=== PATIENT | male | born 1995 | race Caucasian/White ===

== ENCOUNTER 2016-10-30 22:10 | Observation (INO) | payer BC ==
[2016-10-30] MEDS ORDERED: IPRATROPIUM-ALBUTEROL 3 ML NEB INHALATION STA (22:46)
[2016-10-30] MEDS ORDERED: SODIUM CHLORIDE 0.9% 1,000 ML IV STA (22:46)
[2016-10-30] MEDS ORDERED: methylPREDNISolone SOD SUCCI 125 MG/2 ML VIAL IV STA (22:46)
[2016-10-30] MEDS ORDERED: MAGNESIUM SULFATE-D5W PMX 1 GM in DEXTROSE/WATER 1 100ML.BAG IVPB STA (22:46)
--- NOTE | 2016-10-30 22:51 | ED ---
SOB HPI - General Chief Complaint: Shortness of Breath Stated Complaint: SOB Time Seen by Provider: 10/30/16 22:30 Source: patient, RN notes reviewed Mode of arrival: ambulatory Limitations: no limitations - History of Present Illness Initial Comments: This is a 21-year-old male who is a smoker but he has no prior history of asthma or any other medical problems who states he had a cough for about a week or longer he states he was diagnosed with pneumonia about 3 weeks ago and diagnosed with a recurrence yesterday. He was started on medication but he seems worse she's has an shortness of breath chest pain with deep breathing sweats this can exertion cough which is dry at this time. He's been using an inhaler that he was given and does not help. He does admit to smoking so he had one cigarette today. No other complaints at this time MD Complaint: shortness of breath, cough, chest pain - Related Data Home Medications Medication Instructions Recorded Confirmed Levofloxacin [Levaquin] 500 mg PO DAILY 10/30/16 10/30/16 Promethazine 6.25MG/5Ml [Phenergan 5 ml PO Q4H PRN 10/30/16 10/30/16 Syrup] lamoTRIgine [LaMICtal] 200 mg PO DAILY 10/30/16 10/30/16 predniSONE 20 mg PO TID 10/30/16 10/30/16 Allergies Allergy/AdvReac Type Severity Reaction Status Date / Time No Known Allergies Allergy Verified 10/30/16 22:34 Review of Systems ROS Statement: Those systems with pertinent positive or pertinent negative responses have been documented in the HPI. ROS Other: All systems not noted in ROS Statement are negative. Past Medical History Additional Past Medical History / Comment(s): pneumonia History of Any Multi-Drug Resistant Organisms: None Reported Past Surgical History: Adenoidectomy, Appendectomy, Ear Surgery, Tonsillectomy Additional Past Surgical History / Comment(s): uvula removed, septoplasty, Past Psychological History: Bipolar Smoking Status: Current every day smoker Past Alcohol Use History: None Reported Past Drug Use History: None Reported General Exam - General Exam Comments Initial Comments: This is a well-developed well-nourished awake alert oriented 3 male Limitations: no limitations General appearance: alert, anxious, in distress Head exam: Present: atraumatic, normocephalic, normal inspection Eye exam: Present: normal appearance, PERRL, EOMI. Absent: scleral icterus, conjunctival injection, periorbital swelling ENT exam: Present: normal exam, mucous membranes moist Neck exam: Present: normal inspection. Absent: tenderness, meningismus, lymphadenopathy Respiratory exam: Absent: respiratory distress, wheezes, rales, rhonchi, stridor Cardiovascular Exam: Present: normal rhythm, normal heart sounds. Absent: systolic murmur, diastolic murmur, rubs, gallop, clicks GI/Abdominal exam: Present: soft, normal bowel sounds. Absent: distended, tenderness, guarding, rebound, rigid Extremities exam: Present: normal inspection, full ROM, normal capillary refill. Absent: tenderness, pedal edema, joint swelling, calf tenderness Back exam: Present: normal inspection Neurological exam: Present: alert, oriented X3, CN II-XII intact Psychiatric exam: Present: normal affect, normal mood Skin exam: Present: warm, dry, intact, normal color. Absent: rash Course Vital Signs 10/30/16 10/30/16 10/30/16 22:12 23:01 23:10 Temperature 99.5 F Pulse Rate 106 H 104 H 104 H Respiratory 22 Rate Blood Pressure 145/91 O2 Sat by Pulse 98 Oximetry - Reevaluation(s) Reevaluation #1: 10/30/16 22:54 I did discuss the smoking issues with the patient including the need for stopping. We did discuss risks. The conversation lasted 3.1 minutes. Reevaluation #2: 10/31/16 01:27 It was unlikely much improvement in his aeration. Medical Decision Making - Medical Decision Making Patient will be admitted for inpatient treatment and fell outpatient therapy - Lab Data Result diagrams: 10/30/16 23:00 10/30/16 23:00 Lab Results 10/30/16 10/30/16 10/30/16 Range/Units 23:00 23:00 23:00 WBC 12.5 H (3.8-10.6) k/uL RBC 5.35 (4.30-5.90) m/uL Hgb 15.0 (13.0-17.5) gm/dL Hct 45.8 (39.0-53.0) % MCV 85.7 (80.0-100.0) fL MCH 27.9 (25.0-35.0) pg MCHC 32.6 (31.0-37.0) g/dL RDW 13.7 (11.5-15.5) % Plt Count 207 (150-450) k/uL Neutrophils % 73 % Lymphocytes % 20 % Monocytes % 5 % Eosinophils % 1 % Basophils % 0 % Neutrophils # 9.1 H (1.3-7.7) k/uL Lymphocytes # 2.5 (1.0-4.8) k/uL Monocytes # 0.6 (0-1.0) k/uL Eosinophils # 0.1 (0-0.7) k/uL Basophils # 0.0 (0-0.2) k/uL PT (9.0-12.0) sec INR (<1.1) APTT (22.0-30.0) sec D-Dimer (<0.60) mg/L FEU Sodium 139 (137-145) mmol/L Potassium 4.0 (3.5-5.1) mmol/L Chloride 106 (98-107) mmol/L Carbon Dioxide 23 (22-30) mmol/L Anion Gap 10 mmol/L BUN 16 (9-20) mg/dL Creatinine 0.80 (0.66-1.25) mg/dL Est GFR (MDRD) Af Amer >60 (>60 ml/min/1.73 sqM) Est GFR (MDRD) Non-Af >60 (>60 ml/min/1.73 sqM) Glucose 106 H (74-99) mg/dL Calcium 9.7 (8.4-10.2) mg/dL Magnesium 1.9 (1.6-2.3) mg/dL Total Bilirubin 0.3 (0.2-1.3) mg/dL AST 76 H (17-59) U/L ALT 76 H (21-72) U/L Alkaline Phosphatase 70 (38-126) U/L Total Creatine Kinase 1540 H (55-170) U/L CK-MB (CK-2) 8.8 H* (0.0-2.4) ng/mL CK-MB (CK-2) Rel Index 0.6 Troponin I <0.012 (0.000-0.034) ng/mL NT-Pro-B Natriuret Pep pg/mL Total Protein 7.2 (6.3-8.2) g/dL Albumin 4.5 (3.5-5.0) g/dL Influenza Type A RNA (Not Detectd) Influenza Type B (PCR) (Not Detectd) 10/30/16 10/30/16 10/30/16 Range/Units 23:00 23:00 23:17 WBC (3.8-10.6) k/uL RBC (4.30-5.90) m/uL Hgb (13.0-17.5) gm/dL Hct (39.0-53.0) % MCV (80.0-100.0) fL MCH (25.0-35.0) pg MCHC (31.0-37.0) g/dL RDW (11.5-15.5) % Plt Count (150-450) k/uL Neutrophils % % Lymphocytes % % Monocytes % % Eosinophils % % Basophils % % Neutrophils # (1.3-7.7) k/uL Lymphocytes # (1.0-4.8) k/uL Monocytes # (0-1.0) k/uL Eosinophils # (0-0.7) k/uL Basophils # (0-0.2) k/uL PT 10.4 (9.0-12.0) sec INR 1.0 (<1.1) APTT 22.1 (22.0-30.0) sec D-Dimer <0.17 (<0.60) mg/L FEU Sodium (137-145) mmol/L Potassium (3.5-5.1) mmol/L Chloride (98-107) mmol/L Carbon Dioxide (22-30) mmol/L Anion Gap mmol/L BUN (9-20) mg/dL Creatinine (0.66-1.25) mg/dL Est GFR (MDRD) Af Amer (>60 ml/min/1.73 sqM) Est GFR (MDRD) Non-Af (>60 ml/min/1.73 sqM) Glucose (74-99) mg/dL Calcium (8.4-10.2) mg/dL Magnesium (1.6-2.3) mg/dL Total Bilirubin (0.2-1.3) mg/dL AST (17-59) U/L ALT (21-72) U/L Alkaline Phosphatase (38-126) U/L Total Creatine Kinase (55-170) U/L CK-MB (CK-2) (0.0-2.4) ng/mL CK-MB (CK-2) Rel Index Troponin I (0.000-0.034) ng/mL NT-Pro-B Natriuret Pep 26 pg/mL Total Protein (6.3-8.2) g/dL Albumin (3.5-5.0) g/dL Influenza Type A RNA Not Detected (Not Detectd) Influenza Type B (PCR) Not Detected (Not Detectd) - EKG Data -: EKG Interpreted by Ar EKG shows normal: sinus rhythm, axis, intervals, QRS complexes, ST-T waves (EKG done on the patient shows a normal sinus rhythm of 96 AK interval 128 QRS duration 84 daily since QTC of 358/[address]-T wave changes.) Rate: normal - Radiology Data Radiology results: report reviewed (X-rays are negative for acute findings.), image reviewed Critical Care Time Critical Care Time: Yes Critical Care Time: 31 minutes which included the initial presentation with history physical lab and x-rays reevaluation the patient response to therapy and several occasions discussion with patient regarding the findings discussed with the admitting service initial orders and documentation of the above. Disposition Clinical Impression: Asthmatic bronchitis, Failure of outpatient treatment, Febrile illness, acute, Bronchospasm Disposition: ADMITTED IP TO THIS HOSP Condition: Stable
[2016-10-30 23:08] LABS: Basophils % (A) 0 %; CH 28.2; CHCM 33.1; Eosinophils # (A) 0.1 k/uL (0-0.7); Eosinophils % (A) 1 %; HCT 45.8 % (39.0-53.0); HDW 2.63; Luc # (Auto) 0.18; Luc % (Auto) 1; Lymphocytes # (A) 2.5 k/uL (1.0-4.8); Lymphocytes % (A) 20 %; MCH 27.9 pg (25.0-35.0); MCHC 32.6 g/dL (31.0-37.0); MCV 85.7 fL (80.0-100.0); Mean Platelet Volume 6.9; Monocytes # (A) 0.6 k/uL (0-1.0); Monocytes % (A) 5 %; Neutrophils # (A) 9.1 k/uL (1.3-7.7); Neutrophils % (A) 73 %; RBC 5.35 m/uL (4.30-5.90); RDW 13.7 % (11.5-15.5); WBC 12.5 k/uL (3.8-10.6); WBC (Perox) 12.33
[2016-10-30 23:16] LABS: ALT 76 U/L (21-72); AST 76 U/L (17-59); Alkaline Phosphatase 70 U/L (38-126); Anion Gap 10 mmol/L; Blood Urea Nitrogen 16 mg/dL (9-20); Calcium 9.7 mg/dL (8.4-10.2); Carbon Dioxide 23 mmol/L (22-30); Chloride 106 mmol/L (98-107); Glucose 106 mg/dL (74-99); Magnesium 1.9 mg/dL (1.6-2.3); Non-African American GFR(MDRD) >60 (>60 ml/min/1.73 sqM); Sodium 139 mmol/L (137-145); Total Bilirubin 0.3 mg/dL (0.2-1.3); Total Protein 7.2 g/dL (6.3-8.2)
[2016-10-30 23:26] LABS: Creatine Kinase 1540 U/L (55-170)
[2016-10-30 23:34] LABS: Partial Thromboplastin Time 22.1 sec (22.0-30.0); Prothrombin Time 10.4 sec (9.0-12.0)
[2016-10-30 23:39] LABS: Troponin I <0.012 ng/mL (0.000-0.034)
[2016-10-30 23:44] LABS: Creatine Kinase MB 8.8 ng/mL (0.0-2.4)
--- NOTE | 2016-10-31 00:27 | XR ---
EXAM: XR Chest, 2 Views. CLINICAL HISTORY: Reason: difficulty breathing TECHNIQUE: Frontal and lateral views of the chest. COMPARISON: None FINDINGS: Lungs: Unremarkable. No consolidation. Pleural space: No pleural effusion. No pneumothorax. Heart: Unremarkable. No cardiomegaly. Mediastinum: Unremarkable. Bones/joints: Unremarkable. IMPRESSION: No acute cardiopulmonary disease.
[2016-10-31] MEDS ORDERED: NICOTINE 21MG/24HR PATCH TRANSDERM STA (01:32)
[2016-10-31] MEDS: IPRATROPIUM-ALBUTEROL 3 ML NEB INHALATION SCH ×3 (04:27→12:46)
[2016-10-31] MEDS: SODIUM CHLORIDE 0.9% 1,000 ML IV SCH ×2 (05:07→11:58)
[2016-10-31] MEDS: methylPREDNISolone SOD SUCCI 125 MG/2 ML VIAL IV SCH ×2 (06:38→12:03)
[2016-10-31 07:29] VITALS: BP 146/74; RESP 22; TEMP 96.8
[2016-10-31 08:04] VITALS: PULSE 104
[2016-10-31] MEDS ORDERED: LEVOFLOXACIN 500 MG TAB PO SCH (09:00)
[2016-10-31] MEDS ORDERED: NICOTINE 21MG/24HR PATCH TRANSDERM SCH (09:15)
[2016-10-31] MEDS ORDERED: guaiFENesin-DM 100-10MG/5ML 10 ML CUP PO PRN (09:19)
[2016-10-31 10:34] LABS: Hemoglobin A1C 5.4 % (4.2-6.1)
[2016-10-31] MEDS ORDERED: PNEUMOCOCCAL VACC-PNEUMOVAX 23 25 MCG/0.5 ML VIAL IM ONE (11:57)
[2016-10-31] MEDS ORDERED: INFLUENZA VACCINE (3YR+) 60 MCG/0.5 ML SYRINGE IM ONE (11:57)
[2016-10-31] MEDS ORDERED: INSULIN LISPRO (humaLOG) 300 UNIT/3 ML VIAL SQ SCH (12:30)
--- NOTE | 2016-10-31 14:31 | HP ---
DATE OF ADMISSION: HISTORY AND PHYSICAL AND DISCHARGE SUMMARY This 21-year-old pleasant gentleman came in with complaints of asthma, chest pressure-like sensation, unable to breathe. When I evaluated the patient, patient has pretty good air entry into bilateral lung verdugo. No wheezing was appreciated. Patient was complaining of cough with whitish sputum production and patient was diagnosed with pneumonia in the past and patient was also told he has pneumonia. Patient was started on antibiotics and was admitted here along with systemic steroids. When I evaluated the patient, the patient is clinically doing well. Will get rid of his oxygen, make him walk around. I do not believe patient has any infectious bronchitis. Patient does have asthmatic bronchitis and cough secondary to that. Chest x-ray did not show any pneumonic process. Patient will be given weaning dose of prednisone, Dulera. Patient does have albuterol at home. Patient does have gastroesophageal reflux symptoms at home because of which I will send him home on ranitidine as well for his acid reflux. The patient does smoke though. Counseling regarding smoking cessation was provided and that will precipitate his asthma. Patient does not have any PCP here. We will set up an appointment with Dr. Grimaldo and Dr. Rosas's group for pulmonary. REVIEW OF SYSTEMS: CONSTITUTIONAL: No fever, no malaise, no fatigue. HEENT: No recent visual problems or hearing problems. Denied any sore throat. CARDIOVASCULAR: No chest pain, orthopnea, PND, no palpitations, no syncope. PULMONARY: As described in HPI. GASTROINTESTINAL: No diarrhea, no nausea, no vomiting, no abdominal pain. Normoactive bowel sounds. NEUROLOGICAL: No headaches, no weakness, no numbness. HEMATOLOGICAL: Denies any bleeding or petechiae. GENITOURINARY: Denies any burning micturition, frequency, or urgency. MUSCULOSKELETAL/RHEUMATOLOGICAL: Denies any joint pain, swelling, or any muscle pain. ENDOCRINE: Denies any polyuria or polydipsia. The rest of the 14 point review of systems is negative. Home medications included: 1. Levofloxacin. 2. Promethazine. 3. Lamotrigine. 4. Prednisone. Past, social and family history is significant for smoking and psychiatric issues in family. PHYSICAL EXAMINATION: Temperature 96.8, pulse of 76 now it is showing as104, but on examination patient does not appear to have 104 heart rate, respiratory rate of 18, blood pressure is 146/74, saturating at 99% on 2 L of oxygen by nasal cannula. GENERAL: The patient is alert and oriented x3, not in any acute distress. Well developed, well nourished. HEENT: Pupils are round and equally reacting to light. EOMI. No scleral icterus. No conjunctival pallor. Normocephalic, atraumatic. No pharyngeal erythema. No thyromegaly. CARDIOVASCULAR: S1 and S2 present. No murmurs, rubs, or gallops. PULMONARY: Chest is clear to auscultation, no wheezing or crackles. ABDOMEN: Soft, nontender, nondistended, normoactive bowel sounds. No palpable organomegaly. MUSCULOSKELETAL: No joint swelling or deformity. EXTREMITIES: No cyanosis, clubbing, or pedal edema. NEUROLOGICAL: Gross neurological examination did not reveal any focal deficits. SKIN: No rashes. LABORATORY DATA: CBC, BMP are abnormal for elevated WBC count of 12,500 secondary to systemic steroids. Chest x-ray did not show any pneumonic process. ASSESSMENT AND PLAN: 1. Acute asthma exacerbation ( ) status asthmaticus. Patient appears to have moderate persistent asthma. Patient does not have any seasonal allergies. He says he had exercise induced asthma as a kid. Further evaluation can be done as an outpatient. Patient will be discharged on weaning dose of steroids. I do not believe patient will need any antibiotics and patient will be given prescription for Dulera and albuterol. The patient does have albuterol at home. 2. Gastroesophageal reflux disease. 3. Bipolar disorder. 4. Nicotine abuse. Counseling was provided. For bipolar disorder, patient can continue Lamictal. Patient will follow with Dr. Quique Grimaldo on 04 of November at 2 p.m.; Dr. Mary Abreu on 07 of November at 10 a.m. Activity as tolerated. Regular diet. Nicotine cessation counseling was provided. CHELSEA
== END 2016-10-31 13:12 | disposition home or self-care (01) ==
LOC: EC 22:10 → 4MS4W 10-31 01:29
PROVIDERS: ADMIT Internal Medicine; ATTEND Internal Medicine
DX: J45.42 Moderate persistent asthma with status asthmaticus (principal); K21.9 Gastro-esophageal reflux disease without esophagitis; F31.9 Bipolar disorder, unspecified; Z79.899 Other long term (current) drug therapy; Z79.52 Long term (current) use of systemic steroids; F17.200 Nicotine dependence, unspecified, uncomplicated; J18.9 Pneumonia, unspecified organism; Z23 Encounter for immunization
CPT/HCPCS: 99291 ×2; 96365 ×2; 96375 ×2; 96366 ×2; 36415; 94640 ×3; 94760; 93005; 85379; 83880; 80053; 83036; 82550; 82553; 83735; 84484; 85025; 85610; 85730; 87502; 71020; 90732; 90686; G0378; G0008; G0009; S4990; J2930 ×2; J3475; 96376

== ENCOUNTER → 2016-11-11 | Outpatient (CLI) | payer BC ==
--- NOTE | 2016-11-11 16:22 | XR ---
Bilateral shoulders HISTORY: Pain 3 views of both shoulders are submitted on a total of 6 images Bone mineralization, joint spaces and alignment are maintained with the exception of slight superior displacement of the distal clavicle on the left in relation to the acromion. Lung apices are normal. There is a slight thoracic spinal curvature IMPRESSION: Findings suggest acromioclavicular separation on the left. No fracture. Additional findin gs above.
== END ==
LOC: RADXRMAIN 14:30
PROVIDERS: ATTEND Family Medicine
DX: M25.519 Pain in unspecified shoulder (principal)

== ENCOUNTER 2016-12-24 08:25 | Day surgery (SDC) | payer BC ==
[2016-12-22 13:55] VITALS: BMI 32.5
[~2016-12-24 08:25] MED LIST: DEXAMETHASONE SOD PHOSPHATE 10 MG/ML 1 ML VIAL IV ONE; DEXAMETHASONE SOD PHOSPHATE 4 MG/ML 1 ML VIAL IV ONE; FAMOTIDINE 20 MG/2 ML VIAL IV ONE; HYDROmorphone 1 MG/ML 1 ML SYRINGE IVP PRN; LACTATED RINGERS 1,000 ML IV SCH; MIDAZOLAM 2 MG/2 ML VIAL IV PRN; ONDANSETRON 4 MG/2 ML VIAL IVP ONE; SCOPOLAMINE 1.5MG/72HR PATCH TRANSDERM ONE; ceFAZolin 1,000 MG in DEXTROSE/WATER 1 50ML.BAG IV ONE
[2016-12-24] MEDS: OXYMETAZOLINE 0.05% NASL SPRAY 15 ML NASAL ONE ×5 (09:10→09:44)
[2016-12-24] MEDS ORDERED: LIDOCAINE 1% 20 ML VIAL (10MG/ML) FOR IV START INTRADERMA ONE (09:22)
[2016-12-24] MEDS ORDERED: SUCCINYLCHOLINE CHLORIDE 100 MG/5 ML SYR IV ONE (09:52)
[2016-12-24] MEDS ORDERED: MIDAZOLAM 2 MG/2 ML VIAL ONE (09:52)
[2016-12-24] MEDS ORDERED: KETOROLAC 30 MG/ML 1 ML VIAL ONE (09:52)
[2016-12-24] MEDS ORDERED: fentaNYL (PF) 50 MCG/ML 2 ML AMP ONE (09:52)
[2016-12-24] MEDS ORDERED: PROPOFOL 10 MG/ML 20 ML VIAL IV ONE (09:52)
[2016-12-24] MEDS ORDERED: LIDOCAINE 1% INJ 10MG/ML (20 ML MDV) ONE (09:52)
[2016-12-24] MEDS ORDERED: HYDROmorphone (PF) 1 MG/ML ONE (09:52)
[2016-12-24] MEDS ORDERED: DEXAMETHASONE SOD PHOS (MDV) 100 MG/10 ML VIAL ONE (09:52)
[2016-12-24] MEDS ORDERED: LIDOCAINE 1%-EPI 1:100,000 20 ML VIAL SUBMUCOSAL ONE ×2 (10:08)
[2016-12-24] MEDS ORDERED: BACITRACIN 500 UNIT/GM OINT 28.4 GM TUBE TOPICAL ONE (10:08)
--- NOTE | 2016-12-24 10:30 | P.OP ---
Date of Procedure: 12/24/16 Preoperative Diagnosis: Deviated nasal septum Inferior turbinate hypertrophy Postoperative Diagnosis: Same Procedure(s) Performed: Septoplasty Outfracture and submucous resection of the inferior turbinates Anesthesia: CIERAA Surgeon: Frank Elaine Estimated Blood Loss (ml): 5 Pathology: other (Nasal septal bone and cartilage) Condition: stable Disposition: PACU Indications for Procedure: This is a 21-year-old white male with difficulties with chronic nasal airway obstruction. He does have a history of septoplasty tonsillectomy uvulopalatopharyngoplasty in 2013 for sleep apnea but has had increased difficulties with nasal airway obstruction over the last year. Operative Findings: Nasal septum deviated to the left, inferior turbinate hypertrophy Description of Procedure: Patient was brought in the operative suite and placed in a supine position. The patient underwent induction of general anesthesia with oral endotracheal intubation without difficulty. The patient was prepped and draped in usual aseptic fashion. 1% lidocaine with 1-100,000 epinephrine was infused submucosally both sides nasal septum. While this was taking vasoconstrictive effect the inferior turbinates were infractured with [place] elevator partial submucous resection inferior turbinates was performed with Coblation wand ablating a portion of the inferior turbinate soft tissue and then outfractured with the [place] elevator. A left hemitransfixion incision was made with the mucoperichondrial ostial flap on the left elevated. Bony cartilaginous junction was disarticulated and the mucoperiosteal flap on the right was elevated. Bony nasal septal deformities were removed although much of the bony nasal septum was all removed from previous septoplasty. An inferior cartilaginous strip was removed leaving a full 1.5 cm caudal strut. This may be most difference as far as correcting the septal deformity to the left. Once this was completed the hemitransfixion incision was closed running 4-0 chromic suture. Bilateral nasal septal splints were placed coated bacitracin ointment and sutured trans-septally with a 4-0 Vicryl suture. Patient was then suctioned in oral gastric fashion. Patient was allowed to emerge from general anesthesia having tolerated procedure well was excised in the operating suite and transferred to postop recovery area in satisfactory condition.
[2016-12-24 10:38] VITALS: TEMP 98
[2016-12-24 11:24] VITALS: RESP 18
[2016-12-24] MEDS ORDERED: LACTATED RINGERS 1,000 ML IV ONE (11:26)
[2016-12-24 12:38] VITALS: BP 132/70; PULSE 64
== END 2016-12-24 12:38 | disposition home or self-care (01) ==
LOC: OR 08:25
PROVIDERS: ATTEND Otolaryngology
DX: J34.2 Deviated nasal septum (principal); J34.3 Hypertrophy of nasal turbinates; Z72.0 Tobacco use; F14.21 Cocaine dependence, in remission
CPT/HCPCS: 30140; 30520; J2250; J1100 ×2; J2405; J2001; J3010; J1885; J1170; J0330; J2704; 88300

== ENCOUNTER 2016-12-31 22:10 | Emergency (ER) | payer BC, OTHER ==
[2016-12-31 22:30] VITALS: BP 130/66; PULSE 85; RESP 16; TEMP 99.3
== END 2017-01-01 00:05 | disposition home or self-care (01) ==
LOC: EC 22:10
DX: Z02.89 Encounter for other administrative examinations (principal)

== ENCOUNTER 2017-01-14 22:22 | Emergency (ER) | payer BC, OTHER ==
[2017-01-15] MEDS ORDERED: KETOROLAC 60 MG/2 ML VIAL IM STA (00:06)
--- NOTE | 2017-01-15 00:11 | ED ---
Back Pain HPI - General Chief Complaint: Back Pain/Injury Stated Complaint: [facility]. Back Injury Time Seen by Provider: 01/14/17 23:56 Source: patient, RN notes reviewed Limitations: no limitations - History of Present Illness Initial Comments: 21-year-old male presenting for back pain. Patient states he was lifting a heavy object at work about an hour ago when he felt a pop in his mid back. He states he has had persistent back pain since this time. He states he was unable to lift anything after this initial insult without significant worsening of pain. He denies any other injury. He denies any syncope or fall. He denies any significant medical history. He denies any other complaints at this time. - Related Data Home Medications Medication Instructions Recorded Confirmed lamoTRIgine [LaMICtal] 200 mg PO DAILY 10/30/16 12/31/16 Acetaminophen [Tylenol] 650 mg PO Q6HR PRN 12/31/16 12/31/16 HYDROcodone/APAP 5-325MG [[place] 1 tab PO TID PRN 12/31/16 12/31/16 5-325] Sodium Chloride [[place]] 2 spray EA NOSTRIL DAILY 12/31/16 12/31/16 Previous Rx's Medication Instructions Recorded Ibuprofen [Motrin] 800 mg PO Q8HR PRN #21 tab 01/15/17 Methocarbamol [Robaxin] 500 mg PO TID PRN #15 tab 01/15/17 Allergies Allergy/AdvReac Type Severity Reaction Status Date / Time No Known Allergies Allergy Verified 01/14/17 22:55 Review of Systems ROS Statement: Those systems with pertinent positive or pertinent negative responses have been documented in the HPI. ROS Other: All systems not noted in ROS Statement are negative. Past Medical History Past Medical History: Asthma, Pneumonia Additional Past Medical History / Comment(s): pneumonia History of Any Multi-Drug Resistant Organisms: None Reported Past Surgical History: Adenoidectomy, Appendectomy, Ear Surgery, Tonsillectomy Additional Past Surgical History / Comment(s): uvula removed, septoplasty Past Anesthesia/Blood Transfusion Reactions: No Reported Reaction Past Psychological History: Anxiety, Bipolar Smoking Status: Current every day smoker Past Alcohol Use History: None Reported Past Drug Use History: None Reported Additional Drug Use History / Comment(s): History of cocaine use - Past Family History Mother Family Medical History: Cancer, Hyperlipidemia, Hypertension Additional Family Medical History / Comment(s): Ovarian CA, non-Hodgkins lymp Father Family Medical History: Cancer Additional Family Medical History / Comment(s): Skin CA General Exam - General Exam Comments Initial Comments: General: Awake and Alert. No acute distress. Does not appear acutely ill. Eyes: CORBY. No scleral icterus. HENT: Atraumatic, normocephalic. Mucous membranes moist. Trachea midline. Neck: The neck is supple, there is no tenderness or JVD. Cardiovascular: Regular rate and rhythm. No murmur, rub, or gallop is appreciated. Respiratory: Lungs are clear to auscultation bilaterally. No wheezes, rales, rhonchi. No respiratory distress. Gastrointestinal: Non-distended. Musculoskeletal: Right paraspinal muscular tenderness from the mid thoracic to upper lumbar area. No posterior spinal tenderness. Normal ROM. No gross deformity. No strength deficits. Neurological: A&Ox3. CN II-XII grossly intact, There are no obvious motor or sensory deficits. Coordination appears grossly intact. Speech is normal. Normal gait. Skin: Skin is warm and dry and no rashes or lesions are noted. Psychiatric: Cooperative, appropriate mood & affect, normal judgment. Limitations: no limitations Course Vital Signs 01/14/17 22:46 Temperature 98.0 F Pulse Rate 86 Respiratory 20 Rate Blood Pressure 128/77 O2 Sat by Pulse 96 Oximetry Medical Decision Making - Medical Decision Making 21-year-old male presenting for acute back pain after lifting heavy object. Patient with right paraspinal muscular spasm and tenderness. No midline spinal tenderness. Back x-rays were ordered without evidence of acute fracture. Patient was given a dose of Toradol IM with improvement of his pain. Patient requesting no narcotic medications as he is currently in a three-quarter house. Updated on imaging. Discussed concerning signs symptoms for immediate return to the ED. Discussed close follow-up with primary doctor. Patient is agreeable with plan and discharge home. Disposition Clinical Impression: Back strain Disposition: HOME SELF-CARE Condition: Stable Instructions: Acute Low Back Pain (ED) Prescriptions: Ibuprofen [Motrin] 800 mg PO Q8HR PRN #21 tab PRN Reason: Pain Methocarbamol [Robaxin] 500 mg PO TID PRN #15 tab PRN Reason: back spasm Referrals: None,Stated [Primary Care Provider] - 1-2 days Time of Disposition: :25
--- NOTE | 2017-01-15 01:11 | XR ---
EXAM: XR L Spine CLINICAL HISTORY: Reason: Pain TECHNIQUE: X-ray l spine. COMPARISON: No relevant prior studies available. FINDINGS: Mild height loss in the region of the thoracolumbar junction felt to be normal variation. No acute fracture or subluxation. IMPRESSION: No acute fracture or subluxation.
--- NOTE | 2017-01-15 01:12 | XR ---
EXAM: XR T Spine CLINICAL HISTORY: Reason: Pain TECHNIQUE: AP lateral and swimmer's views COMPARISON: No relevant prior studies available. FINDINGS: Limited by summation. No acute fracture or subluxation is identified. IMPRESSION: No acute fractures identified.
[2017-01-15 01:30] VITALS: BP 122/68; PULSE 79; RESP 18; TEMP 97.2
== END 2017-01-15 01:29 | disposition home or self-care (01) ==
LOC: EC 22:22
DX: S39.012A Strain of muscle, fascia and tendon of lower back, initial encounter (principal); F31.9 Bipolar disorder, unspecified; F17.200 Nicotine dependence, unspecified, uncomplicated; Z79.899 Other long term (current) drug therapy; X50.0XXA Overexertion from strenuous movement or load, initial encounter; Y92.69 Other specified industrial and construction area as the place of occurrence of the external cause; Y99.0 Civilian activity done for income or pay
CPT/HCPCS: 72070; 72100; 99283; 96372; J1885

== ENCOUNTER → 2017-02-27 | Outpatient (CLI) | payer BC ==
[2017-02-27 14:13] LABS: Basophils # (A) 0.1 k/uL (0-0.2); Basophils % (A) 1 %; CH 27.9; CHCM 33.3; Eosinophils # (A) 0.1 k/uL (0-0.7); Eosinophils % (A) 2 %; HCT 46.8 % (39.0-53.0); HDW 2.63; HGB 16.3 gm/dL (13.0-17.5); Luc # (Auto) 0.15; Luc % (Auto) 2; Lymphocytes # (A) 2.3 k/uL (1.0-4.8); Lymphocytes % (A) 33 %; MCH 29.2 pg (25.0-35.0); MCHC 34.8 g/dL (31.0-37.0); MCV 83.9 fL (80.0-100.0); Mean Platelet Volume 7.7; Monocytes # (A) 0.5 k/uL (0-1.0); Monocytes % (A) 7 %; Neutrophils # (A) 3.9 k/uL (1.3-7.7); Neutrophils % (A) 55 %; RBC 5.57 m/uL (4.30-5.90); RDW 14.1 % (11.5-15.5); WBC (Perox) 7.01
[2017-02-27 14:37] LABS: % Iron Saturation 18.5 % (20-50)
[2017-02-27 19:56] LABS: Tis Transglutaminase IgG Unit 134.9 U/mL
== END | disposition home or self-care (01) ==
LOC: LABWHC1 13:27
PROVIDERS: ATTEND Student in an Organized Health Care Education/Training Program
DX: R10.13 Epigastric pain (principal); R63.4 Abnormal weight loss
CPT/HCPCS: 36415; 82728; 82784; 83516; 83540; 83550; 85025; 86255

== ENCOUNTER → 2017-05-20 | Outpatient (CLI) | payer OTHER ==
--- NOTE | 2017-05-20 18:03 | XR ---
PROCEDURE: XR wrist complete BILATERAL DATE AND TIME: 05/20/2017 5:40 PM REFERRING PHYSICIAN: Chaz Duff DO CLINICAL INDICATION: [facility], M25.531 M25.532 bilateral wrist pain TECHNIQUE: Department protocol. COMPARISON: None FINDINGS: Right wrist: AP and lateral and oblique views were obtained, in addition to a navicular view. The bon es and joints and soft tissues are negative. Left wrist: AP and lateral and oblique views were obtained, in addition to a ventricular view. The michael stepan and joints and soft tissues are negative. IMPRESSION: NO ACUTE PROCESS; NO INCIDENTAL FINDINGS.
== END | disposition home or self-care (01) ==
LOC: RADXRMAIN 17:26
PROVIDERS: ATTEND Emergency Medicine
DX: M25.531 Pain in right wrist (principal); M25.532 Pain in left wrist

== ENCOUNTER 2018-05-02 18:09 | Emergency (ER) | payer BC, OTHER ==
[2018-05-02 18:31] VITALS: BP 124/75; PULSE 89; RESP 20; TEMP 98.1
--- NOTE | 2018-05-02 18:49 | ED ---
Lower Extremity Injury HPI - General Chief Complaint: Extremity Injury, Lower Stated Complaint: Knee injury Time Seen by Provider: 05/02/18 18:22 Source: patient, RN notes reviewed Mode of arrival: wheelchair Limitations: no limitations - History of Present Illness Initial Comments: 23-year-old male presents emergency Department chief complaint right knee pain. 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 Patient states that his knee feels very and stable at this time and he has increased pain, swelling. Patient states he's never had any issues in the past with his knee. Denies any hip or ankle pain. - Related Data Home Medications Medication Instructions Recorded Confirmed Omeprazole 40 mg PO DAILY 05/02/18 05/02/18 Protandim 1 tab PO DAILY 05/02/18 05/02/18 Sofosbuvir/Velpatasvir [Epclusa 1 each PO DAILY 05/02/18 05/02/18 400 mg-100 mg Tablet] Allergies Allergy/AdvReac Type Severity Reaction Status Date / Time No Known Allergies Allergy Verified 05/02/18 18:16 Review of Systems ROS Statement: Those systems with pertinent positive or pertinent negative responses have been documented in the HPI. ROS Other: All systems not noted in ROS Statement are negative. Past Medical History Past Medical History: Asthma, Pneumonia Additional Past Medical History / Comment(s): hep c, previous drug user History of Any Multi-Drug Resistant Organisms: None Reported Past Surgical History: Adenoidectomy, Appendectomy, Ear Surgery, Tonsillectomy Additional Past Surgical History / Comment(s): uvula removed, septoplasty, right rotator cuff Past Anesthesia/Blood Transfusion Reactions: No Reported Reaction Past Psychological History: No Psychological Hx Reported Smoking Status: Current every day smoker Past Alcohol Use History: None Reported Past Drug Use History: None Reported - Past Family History Mother Family Medical History: Cancer, Hyperlipidemia, Hypertension Additional Family Medical History / Comment(s): Ovarian CA, non-Hodgkins lymp Father Family Medical History: Cancer Additional Family Medical History / Comment(s): Skin CA General Exam Limitations: no limitations General appearance: alert, in no apparent distress Head exam: Present: atraumatic, normocephalic, normal inspection Neck exam: Present: normal inspection, full ROM. Absent: tenderness, meningismus, lymphadenopathy Respiratory exam: Present: normal lung sounds bilaterally. Absent: respiratory distress, wheezes, rales, rhonchi, stridor Cardiovascular Exam: Present: regular rate, normal rhythm, normal heart sounds. Absent: systolic murmur, diastolic murmur, rubs, gallop, clicks Extremities exam: Present: other (Right knee there is mild swelling, no tenderness with palpation though he has pain with range of motion passive and active, no laxity noted but pain with valgus and varus.) Neurological exam: Present: reflexes normal. Absent: motor sensory deficit Skin exam: Present: warm, dry, intact, normal color. Absent: rash Course Vital Signs 05/02/18 18:17 Temperature 98.1 F Pulse Rate 89 Respiratory 20 Rate Blood Pressure 124/75 O2 Sat by Pulse 100 Oximetry Medical Decision Making - Medical Decision Making 23-year-old male presented emergency from for right knee injury. Patient had x- rays which showed no acute osseous abnormality. Patient does have noted swelling and pain with range of motion. Explain with these findings and concern for possible ligamentous injury including ACL, MCL or possible meniscus injury. Patient was placed in knee immobilizer he'll follow-up with orthopedics on-call Dr. Matias and return for any worsening symptoms. Disposition Clinical Impression: Right knee sprain Disposition: HOME SELF-CARE Condition: Stable Instructions: Knee Sprain (ED) Additional Instructions: Please return to the Emergency Department if symptoms worsen or any other concerns. Is patient prescribed a controlled substance at d/c from ED?: No Referrals: Chaz Lacy DO [Primary Care Provider] - 1-2 days Twan Matias MD [STAFF PHYSICIAN] - 1-2 days Time of Disposition: 18:59
--- NOTE | 2018-05-02 18:57 | XR ---
EXAMINATION TYPE: XR knee complete RT DATE OF EXAM: 05/02/2018 COMPARISON: NONE HISTORY: Knee pain TECHNIQUE: 3 views FINDINGS: I see no fracture nor dislocation. Joint spaces are normal. There is no sign of knee joint effusion. IMPRESSION: Negative right knee exam.
== END 2018-05-02 19:08 | disposition home or self-care (01) ==
LOC: EC 18:09
DX: S83.91XA Sprain of unspecified site of right knee, initial encounter (principal); F17.200 Nicotine dependence, unspecified, uncomplicated; Z79.899 Other long term (current) drug therapy; X50.9XXA Other and unspecified overexertion or strenuous movements or postures, initial encounter; Y93.01 Activity, walking, marching and hiking; Y92.511 Restaurant or cafe as the place of occurrence of the external cause
CPT/HCPCS: 73562; 99283; L1830

== ENCOUNTER 2018-06-20 21:26 | Emergency (ER) | payer BC, OTHER ==
[2018-06-20 21:47] VITALS: TEMP 98.4
--- NOTE | 2018-06-20 22:05 | ED ---
General Adult HPI - General Chief complaint: Head Injury Stated complaint: facial injury(Baseball) Source: patient Mode of arrival: ambulatory Limitations: no limitations - History of Present Illness Initial comments: Dictation was produced using [employer] dictation software. please excuse any grammatical, word or spelling errors. Chief Complaint: 23-year-old male presents with right maxillary pain. History of Present Illness: Patient was in a softball game. He states he was hit in the face by a line drive playing softball. He states that after the incident he began expressing severe pain. Patient denies loss of consciousness however didn't state that he was woozy. Patient states he has some visual changes. Denies any nose bleeding. Denies any malocclusion. He states he does have some tenderness to the left TMJ especially with opening and closing his mouth. He does report some double vision. Patient states that did have an approximately 3 PM The ROS documented in this emergency department record has been reviewed and confirmed by me. Those systems with pertinent positive or negative responses have been documented in the HPI. All other systems are other negative and/or noncontributory. - Related Data Home Medications Medication Instructions Recorded Confirmed Omeprazole 40 mg PO DAILY 05/02/18 05/02/18 Protandim 1 tab PO DAILY 05/02/18 05/02/18 Sofosbuvir/Velpatasvir [Epclusa 1 each PO DAILY 05/02/18 05/02/18 400 mg-100 mg Tablet] Previous Rx's Medication Instructions Recorded Ibuprofen [Motrin] 600 mg PO Q8HR PRN #30 tab 05/02/18 Erythromycin Ophth Oint [Romycin 1 applic RIGHT EYE QID #1 tube 06/20/18 Ophth Oint] Allergies Allergy/AdvReac Type Severity Reaction Status Date / Time No Known Allergies Allergy Verified 06/20/18 21:47 Review of Systems ROS Statement: Those systems with pertinent positive or pertinent negative responses have been documented in the HPI. ROS Other: All systems not noted in ROS Statement are negative. Past Medical History Past Medical History: Asthma, Pneumonia Additional Past Medical History / Comment(s): hep c, previous drug user History of Any Multi-Drug Resistant Organisms: None Reported Past Surgical History: Adenoidectomy, Appendectomy, Ear Surgery, Tonsillectomy Additional Past Surgical History / Comment(s): uvula removed, septoplasty, right rotator cuff Past Anesthesia/Blood Transfusion Reactions: No Reported Reaction Past Psychological History: No Psychological Hx Reported Smoking Status: Current every day smoker Past Alcohol Use History: None Reported Past Drug Use History: None Reported - Past Family History Mother Family Medical History: Cancer, Hyperlipidemia, Hypertension Additional Family Medical History / Comment(s): Ovarian CA, non-Hodgkins lymp Father Family Medical History: Cancer Additional Family Medical History / Comment(s): Skin CA General Exam - General Exam Comments Initial Comments: PHYSICAL EXAM: General Impression: Alert and oriented x3, not in acute distress HEENT: Right maxillary erythema and swelling, extra-ocular movements intact, pupils equal and reactive to light bilaterally, mucous membranes moist. Cardiovascular: Heart regular rate and rhythm, S1&S2 audible, no murmurs, rubs or gallops Chest: Lungs clear to auscultation bilaterally, no rhonchi, no wheeze, no rales Abdomen: Bowel sounds present, abdomen soft, non-tender, non-distended, no organomegaly Musculoskeletal: Pulses present and equal in all extremities, no peripheral edema Motor: Power 5/5 bilaterally, no focal deficits noted Neurological: CN II-XII grossly intact, no focal motor or sensory deficits noted Skin: Intact with no visualized rashes Psych: Normal affect and mood Limitations: no limitations Course Vital Signs 06/20/18 21:45 Temperature 98.4 F Pulse Rate 97 Respiratory 18 Rate Blood Pressure 129/80 O2 Sat by Pulse 98 Oximetry Medical Decision Making - Medical Decision Making ED course: 23-year-old male presents with facial pain after being hit in the face with softball. Vital signs upon arrival are within acceptable limits. Computed tomography scan of the face was obtained showing no facial fractures. Vision acuity was checked with 20/50 on the right and 20/20 on the left. Fluorescein testing showed a 1 x 1 mm abrasion to the nasal inferior conjunctiva. Patient given prescription for erythromycin ointment. He is given outpatient follow-up with ophthalmology. Patient is understandable and agreeable to plan. Disposition Clinical Impression: Corneal abrasion Disposition: HOME SELF-CARE Condition: Good Instructions: Corneal Abrasion (DC) Prescriptions: Erythromycin Ophth Oint [Romycin Ophth Oint] 1 applic RIGHT EYE QID #1 tube Is patient prescribed a controlled substance at d/c from ED?: No Referrals: Chaz Lacy DO [Primary Care Provider] - 1-2 days Earnest Lynn MD [STAFF PHYSICIAN] - 1-2 days Time of Disposition: 23:34
[2018-06-20] MEDS ORDERED: KETOROLAC 30 MG/ML 1 ML VIAL IM STA (22:15)
[2018-06-20] MEDS ORDERED: ACETAMINOPHEN TAB 500 MG TAB PO STA (22:19)
--- NOTE | 2018-06-20 23:10 | CT ---
EXAMINATION TYPE: CT facial bones wo con DATE OF EXAM: 06/20/2018 COMPARISON: None HISTORY: Right infraorbital pain after injury. CT DLP: 637.6 mGycm Automated exposure control for dose reduction was used. TECHNIQUE: CT scan of the sinuses is performed without contrast, axial images are obtained, coronal r eformatted images are also reviewed. FINDINGS: The orbital margins are intact. I see no evidence of blowout fracture. There is fairly norm al aeration of the paranasal sinuses. The maxilla appears intact. Nasal bone appears intact. Zygomati c arches appear normal. The mandibular ring appears intact. Temporomandibular joints appear normal. T here is no evidence of orbital mass. There is no retro-orbital mass. IMPRESSION: Negative CT scan of the facial bones.
[2018-06-20] MEDS ORDERED: PROPARACAINE 0.5% OPHTH DROPS 15 ML BTL RIGHT EYE STA (23:25)
[2018-06-20 23:33] VITALS: BP 119/67; PULSE 70; RESP 17
[2018-06-20] MEDS ORDERED: IBUPROFEN 600 MG TAB PO STA (23:36)
== END 2018-06-20 23:42 | disposition home or self-care (01) ==
LOC: EC 21:26
DX: S05.01XA Injury of conjunctiva and corneal abrasion without foreign body, right eye, initial encounter (principal); F17.200 Nicotine dependence, unspecified, uncomplicated; Z98.890 Other specified postprocedural states; Z79.899 Other long term (current) drug therapy; W21.07XA Struck by softball, initial encounter; Y93.64 Activity, baseball
CPT/HCPCS: 70486; 99284

== ENCOUNTER 2018-06-28 02:26 | Emergency (ER) | payer BC, OTHER ==
--- NOTE | 2018-06-28 02:46 | ED ---
Chest Pain HPI - General Chief Complaint: Chest Pain Stated Complaint: SOB, Palpitations Time Seen by Provider: 06/28/18 02:44 Source: patient Mode of arrival: ambulatory Limitations: no limitations - History of Present Illness Initial Comments: Urine is a 23-year-old male with a previous history of polysubstance abuse who presents the emergency department today for evaluation of chest pain. Patient reports he was in his usual state of health throughout the day today, he did work out somewhat. He reports that this evening he developed a stabbing left- sided chest pain. It is not associated with any palpitations, shortness of breath or diaphoresis. Patient is no cardiac history. He does report that he had grandparents with cardiac history but no one in the family with early cardiac disease or sudden cardiac . He has no history of tinnitus pneumothorax. He denies any recent chest wall trauma. - Related Data Home Medications Medication Instructions Recorded Confirmed Sofosbuvir/Velpatasvir [Epclusa 1 each PO DAILY 05/02/18 06/28/18 400 mg-100 mg Tablet] Allergies Allergy/AdvReac Type Severity Reaction Status Date / Time No Known Allergies Allergy Verified 06/28/18 02:36 Review of Systems ROS Statement: Those systems with pertinent positive or pertinent negative responses have been documented in the HPI. ROS Other: All systems not noted in ROS Statement are negative. EKG Findings - EKG Comments: EKG Findings:: EKG obtained at 2:44 AM, rate is 88, rhythm is sinus, there is normal axis, normal intervals, OH 128, QRS 90, QTc is 435. There is no acute ST elevations or depressions no evidence of acute ischemia or infarction. Past Medical History Past Medical History: Asthma, Pneumonia Additional Past Medical History / Comment(s): hep c, previous drug user History of Any Multi-Drug Resistant Organisms: None Reported Past Surgical History: Adenoidectomy, Appendectomy, Ear Surgery, Tonsillectomy Additional Past Surgical History / Comment(s): uvula removed, septoplasty, right rotator cuff Past Anesthesia/Blood Transfusion Reactions: No Reported Reaction Past Psychological History: No Psychological Hx Reported Smoking Status: Current every day smoker Past Alcohol Use History: None Reported Past Drug Use History: Cocaine, Heroin, Methamphetamine - Past Family History Mother Family Medical History: Cancer, Hyperlipidemia, Hypertension Additional Family Medical History / Comment(s): Ovarian CA, non-Hodgkins lymp Father Family Medical History: Cancer Additional Family Medical History / Comment(s): Skin CA General Exam - General Exam Comments Initial Comments: Physical Exam GENERAL: Patient is well-developed and well-nourished. Patient is nontoxic and well- hydrated and is in mild distress. HENT: Normocephalic, Atraumatic. EYES: PERRL, EOMI PULMONARY: Unlabored respirations. No audible rales rhonchi or wheezing was noted. CARDIOVASCULAR: There is a regular rate and rhythm without any murmurs gallops or rubs. Extremities are warm and well perfused ABDOMEN: Soft and nontender with normal bowel sounds. SKIN: Skin is clear with no lesions or rashes and otherwise unremarkable. : Deferred NEUROLOGIC: Patient is alert and oriented x3. Moving all extremities spontaneously MUSCULOSKELETAL: Normal extremities with adequate strength and full range of motion. No lower extremity swelling or edema. No calf tenderness. PSYCHIATRIC: Normal psychiatric evaluation. Agitated Limitations: no limitations Limitations: no limitations Course Vital Signs 06/28/18 06/28/18 06/28/18 02:33 03:32 04:52 Temperature 98.2 F Pulse Rate 100 89 61 Respiratory 20 22 17 Rate Blood Pressure 123/73 138/64 116/70 O2 Sat by Pulse 100 100 99 Oximetry Chest Pain MDM - MDM The patient was seen and evaluated, history was obtained from the patient. This is a young physically active 23-year-old male with no significant past medical history aside from hepatitis C who presents the ED today for left-sided chest pain. Patient did have a strenuous workout earlier the day. He denies any recent drug use. Cardiac workup was ordered Labs notable for elevated creatinine kinase, this is likely exertional secondary to workout. A 2 L IV fluid bolus was ordered. After the initial evaluation the patient was noted to sleep comfortably for 2-1/ 2 hours throughout his ER stay. Patient was in no acute distress. Vital signs were stable. Results were discussed with the patient who expresses relief, at this time I suspect that the patient's discomfort is musculoskeletal in nature. Patient is in agreement to this. Treatment with anti-inflammatories rest and stretching were discussed. The importance of rehydration therapy was discussed with the patient. All questions pertaining care were answered the best my ability patient was discharged home in stable condition. Disposition Clinical Impression: Atypical chest pain, Rhabdomyolysis Disposition: HOME SELF-CARE Condition: Good Instructions: Chest Pain (ED), Costochondritis (ED) Is patient prescribed a controlled substance at d/c from ED?: No Referrals: Chaz Lacy DO [Primary Care Provider] - 1-2 days
--- NOTE | 2018-06-28 03:04 | XR ---
EXAM: XR Chest, 1 View CLINICAL HISTORY: ITS.REASON XR Reason: chest pain TECHNIQUE: Frontal view of the chest. COMPARISON: No relevant prior studies available. FINDINGS: Lungs: Unremarkable. No consolidation. Pleural space: Unremarkable. No pneumothorax. Heart: Unremarkable. No cardiomegaly. Mediastinum: Unremarkable. Bones/joints: Unremarkable. IMPRESSION: No acute findings.
[2018-06-28 03:05] LABS: Basophils % (A) 0 %; Eosinophils # (A) 0.1 k/uL (0-0.7); Eosinophils % (A) 1 %; HCT 46.5 % (39.0-53.0); HGB 15.4 gm/dL (13.0-17.5); Lymphocytes # (A) 3.1 k/uL (1.0-4.8); Lymphocytes % (A) 23 %; MCH 27.9 pg (25.0-35.0); MCHC 33.2 g/dL (31.0-37.0); MCV 84.1 fL (80.0-100.0); Mean Platelet Volume 6.9; Monocytes # (A) 0.8 k/uL (0-1.0); Monocytes % (A) 6 %; Neutrophils # (A) 9.3 k/uL (1.3-7.7); Neutrophils % (A) 69 %; Platelet Count 219 k/uL (150-450); RBC 5.53 m/uL (4.30-5.90); RDW 14.2 % (11.5-15.5); WBC 13.5 k/uL (3.8-10.6)
[2018-06-28 03:13] LABS: ALT 57 U/L (21-72); AST 52 U/L (17-59); Albumin 4.7 g/dL (3.5-5.0); Alkaline Phosphatase 64 U/L (38-126); Anion Gap 10 mmol/L; Blood Urea Nitrogen 17 mg/dL (9-20); Calcium 10.2 mg/dL (8.4-10.2); Carbon Dioxide 24 mmol/L (22-30); Chloride 105 mmol/L (98-107); Glucose 110 mg/dL (74-99); Lipase 103 U/L (23-300); Magnesium 2.1 mg/dL (1.6-2.3); Potassium 4.5 mmol/L (3.5-5.1); Sodium 139 mmol/L (137-145); Total Bilirubin 0.3 mg/dL (0.2-1.3); Total Protein 7.8 g/dL (6.3-8.2)
[2018-06-28 03:26] LABS: Creatine Kinase 775 U/L (55-170)
[2018-06-28 03:40] LABS: Troponin I <0.012 ng/mL (0.000-0.034)
[2018-06-28 03:48] LABS: D-Dimer 0.24 mg/L FEU (<0.60); Prothrombin Time 9.8 sec (9.0-12.0)
[2018-06-28 03:49] LABS: Partial Thromboplastin Time 20.4 sec (22.0-30.0)
[2018-06-28] MEDS ORDERED: SODIUM CHLORIDE 0.9% 2,000 ML IV ONE (04:40)
[2018-06-28 07:22] VITALS: BP 102/73; RESP 18; TEMP 98.4
[2018-06-28 07:30] VITALS: PULSE 99
== END 2018-06-28 07:00 | disposition home or self-care (01) ==
LOC: EC 02:26
DX: M62.82 Rhabdomyolysis (principal); R07.89 Other chest pain; R00.2 Palpitations; R06.02 Shortness of breath; J45.909 Unspecified asthma, uncomplicated; F17.200 Nicotine dependence, unspecified, uncomplicated
CPT/HCPCS: 36415; 71045; 80053; 82550; 82553; 83690; 83735; 84484; 85025; 85379; 85610; 85730; 93005; 96360; 96361; 99285

== ENCOUNTER → 2019-05-24 | Outpatient (CLI) | payer BC ==
--- NOTE | 2019-05-25 04:47 | FL ---
EXAMINATION TYPE: Left shoulder fluoroscopic-guided arthrogram injection. DATE OF EXAM: 05/24/2019 HISTORY: 24-year-old male left shoulder pain, SLAP tear, reported SC joint separation and shoulder di slocation. PROCEDURES: 1. Left shoulder fluoroscopy. 2. Left shoulder arthrogram. Total fluoroscopy time: 47 seconds. Total images: One image saved. TECHNIQUE: The procedure, risks, and alternatives, were discussed with the patient, who requested that crater [email or web address] The consent form was signed, and teach-back occurred. The site/side of the procedure was marked with a line with participation by the patient. The accompan nelson paperwork was verified for consistency. A directed history and physical exam was performed prior to the procedure. A critical pause was per formed with assisting personnel just prior to the procedure, and the patient's identity was confirmed using 2 identifiers. Imaging guidance was utilized to select the precise skin entry point just prior to the procedure. The left shoulder was prepped and draped in the usual sterile fashion and local 1% lidocaine anesthes ia was instilled. Under fluoroscopic guidance, a 22 gauge spinal needle was introduced into the ante rior left glenohumeral joint. Appropriate needle tip position was confirmed after a small amount of c ontrast injection. Approximately 12 ml of a mixture of Isovue-370 iodinated contrast and Gadavist was injected into the glenohumeral joint (from a 20 ml syringe composed of 5ml Isovue 370, 15ml sterile saline, and 0.07ml Gadavist). The needle was then removed. The patient tolerated the procedure well. There was no immediate complication. After the procedure, the patient's condition was unchanged. Estimated blood loss was minimal. The pa tient was counseled on routine postprocedure precautions including monitoring for signs of infection. IMPRESSION: Technically successful left shoulder arthrogram injection for MRI. No immediate complication.
== END ==
LOC: RADFLMAIN 13:04
PROVIDERS: ATTEND Orthopaedic Surgery
DX: M25.512 Pain in left shoulder (principal); S43.439A Superior glenoid labrum lesion of unspecified shoulder, initial encounter
CPT/HCPCS: 23350; 73040; 73222; J2001; A9585; Q9967

== ENCOUNTER 2019-10-25 04:17 | Emergency (ER) | payer BC ==
[2019-10-25] MEDS ORDERED: ACETAMINOPHEN TAB 325 MG TAB PO STA (05:19)
[2019-10-25] MEDS: SODIUM CHLORIDE 0.9% 500 ML 500 ML IV SCH ×2 (05:25→06:16)
--- NOTE | 2019-10-25 05:26 | ED ---
URI HPI - General Chief Complaint: Upper Respiratory Infection Stated Complaint: Body aches,Fever Time Seen by Provider: 10/25/19 04:57 Source: patient Mode of arrival: ambulatory Limitations: no limitations - History of Present Illness Initial Comments: This patient is a 24-year-old man with a little over 24 hours of fever and chills, cough, body aches and headache. MD Complaint: fever, cough Onset/Timin -: days(s) Associated Symptoms: fever, chills, myalgias, headache - Related Data Home Medications Medication Instructions Recorded Confirmed Sofosbuvir/Velpatasvir [Epclusa 1 each PO DAILY 05/02/18 06/28/18 400 mg-100 mg Tablet] Previous Rx's Medication Instructions Recorded Amoxicillin 875 mg PO Q12HR #14 tablet 10/25/19 Allergies Allergy/AdvReac Type Severity Reaction Status Date / Time No Known Allergies Allergy Verified 06/28/18 02:36 Review of Systems ROS Statement: Those systems with pertinent positive or pertinent negative responses have been documented in the HPI. ROS Other: All systems not noted in ROS Statement are negative. Constitutional: Reports: fever, chills. Denies: weakness Eyes: Denies: vision change ENT: Reports: congestion. Denies: throat pain Respiratory: Reports: cough. Denies: dyspnea, wheezes Cardiovascular: Denies: chest pain, syncope Gastrointestinal: Denies: abdominal pain, vomiting, diarrhea Genitourinary: Denies: dysuria, hematuria Musculoskeletal: Reports: myalgia. Denies: back pain Skin: Denies: rash Neurological: Reports: headache. Denies: weakness, numbness, paresthesias, confusion Past Medical History Past Medical History: Asthma, Pneumonia Additional Past Medical History / Comment(s): hep c, previous drug user History of Any Multi-Drug Resistant Organisms: None Reported Past Surgical History: Adenoidectomy, Appendectomy, Ear Surgery, Tonsillectomy Additional Past Surgical History / Comment(s): uvula removed, septoplasty, right rotator cuff Past Anesthesia/Blood Transfusion Reactions: No Reported Reaction Past Psychological History: No Psychological Hx Reported Smoking Status: Current every day smoker Past Alcohol Use History: Abuse, Heavy Past Drug Use History: Cocaine, Heroin, Methamphetamine - Past Family History Mother Family Medical History: Cancer, Hyperlipidemia, Hypertension Additional Family Medical History / Comment(s): Ovarian CA, non-Hodgkins lymp Father Family Medical History: Cancer Additional Family Medical History / Comment(s): Skin CA General Exam Limitations: no limitations General appearance: alert, in no apparent distress Head exam: Present: atraumatic, normocephalic Eye exam: Present: normal appearance. Absent: scleral icterus, conjunctival injection ENT exam: Present: mucous membranes dry Neck exam: Present: normal inspection, full ROM. Absent: meningismus Respiratory exam: Present: normal lung sounds bilaterally. Absent: respiratory distress, wheezes, rales, rhonchi, stridor Cardiovascular Exam: Present: regular rate, normal rhythm, normal heart sounds. Absent: systolic murmur, diastolic murmur, rubs, gallop GI/Abdominal exam: Present: soft. Absent: distended, tenderness, guarding, rebound, rigid Extremities exam: Present: normal inspection, normal capillary refill. Absent: pedal edema, calf tenderness Back exam: Present: normal inspection. Absent: CVA tenderness (R), CVA tenderness (L) Neurological exam: Present: alert Skin exam: Present: warm, dry, intact, normal color. Absent: rash Course Vital Signs 10/25/19 10/25/19 10/25/19 04:32 04:53 05:20 Temperature 102.5 F H 101.6 F H 99.6 F Pulse Rate 121 H 109 H Respiratory 20 20 Rate Blood Pressure 150/88 126/71 O2 Sat by Pulse 98 98 Oximetry 10/25/19 10/25/19 06:11 07:00 Temperature 98.6 F 98.0 F Pulse Rate 104 H 107 H Respiratory 20 20 Rate Blood Pressure 149/75 149/66 O2 Sat by Pulse 98 98 Oximetry Medical Decision Making - Lab Data Result diagrams: 10/25/19 04:50 10/25/19 04:50 Lab Results 10/25/19 10/25/19 10/25/19 Range/Units 04:50 04:50 04:50 WBC 7.0 (3.8-10.6) k/uL RBC 5.09 (4.30-5.90) m/uL Hgb 14.4 (13.0-17.5) gm/dL Hct 43.5 (39.0-53.0) % MCV 85.5 (80.0-100.0) fL MCH 28.2 (25.0-35.0) pg MCHC 33.0 (31.0-37.0) g/dL RDW 13.5 (11.5-15.5) % Plt Count 177 (150-450) k/uL Neutrophils % 86 % Lymphocytes % 6 % Monocytes % 5 % Eosinophils % 1 % Basophils % 0 % Neutrophils # 6.0 (1.3-7.7) k/uL Lymphocytes # 0.4 L (1.0-4.8) k/uL Monocytes # 0.4 (0-1.0) k/uL Eosinophils # 0.1 (0-0.7) k/uL Basophils # 0.0 (0-0.2) k/uL PT (9.0-12.0) sec INR (<1.2) APTT (22.0-30.0) sec Sodium 136 L (137-145) mmol/L Potassium 4.0 (3.5-5.1) mmol/L Chloride 101 (98-107) mmol/L Carbon Dioxide 28 (22-30) mmol/L Anion Gap 7 mmol/L BUN 12 (9-20) mg/dL Creatinine 0.94 (0.66-1.25) mg/dL Est GFR (CKD-EPI)AfAm >90 (>60 ml/min/1.73 sqM) Est GFR (CKD-EPI)NonAf >90 (>60 ml/min/1.73 sqM) Glucose 100 H (74-99) mg/dL Plasma Lactic Acid Santos (0.7-2.0) mmol/L Calcium 9.4 (8.4-10.2) mg/dL Total Bilirubin 0.1 L (0.2-1.3) mg/dL AST 40 (17-59) U/L ALT 38 (4-49) U/L Alkaline Phosphatase 72 (38-126) U/L Total Protein 7.1 (6.3-8.2) g/dL Albumin 4.4 (3.5-5.0) g/dL Influenza Type A RNA Not Detected (Not Detectd) Influenza Type B (PCR) Not Detected (Not Detectd) 10/25/19 10/25/19 Range/Units 04:50 04:50 WBC (3.8-10.6) k/uL RBC (4.30-5.90) m/uL Hgb (13.0-17.5) gm/dL Hct (39.0-53.0) % MCV (80.0-100.0) fL MCH (25.0-35.0) pg MCHC (31.0-37.0) g/dL RDW (11.5-15.5) % Plt Count (150-450) k/uL Neutrophils % % Lymphocytes % % Monocytes % % Eosinophils % % Basophils % % Neutrophils # (1.3-7.7) k/uL Lymphocytes # (1.0-4.8) k/uL Monocytes # (0-1.0) k/uL Eosinophils # (0-0.7) k/uL Basophils # (0-0.2) k/uL PT 9.7 (9.0-12.0) sec INR 0.9 (<1.2) APTT 21.7 L (22.0-30.0) sec Sodium (137-145) mmol/L Potassium (3.5-5.1) mmol/L Chloride (98-107) mmol/L Carbon Dioxide (22-30) mmol/L Anion Gap mmol/L BUN (9-20) mg/dL Creatinine (0.66-1.25) mg/dL Est GFR (CKD-EPI)AfAm (>60 ml/min/1.73 sqM) Est GFR (CKD-EPI)NonAf (>60 ml/min/1.73 sqM) Glucose (74-99) mg/dL Plasma Lactic Acid Santos 1.1 (0.7-2.0) mmol/L Calcium (8.4-10.2) mg/dL Total Bilirubin (0.2-1.3) mg/dL AST (17-59) U/L ALT (4-49) U/L Alkaline Phosphatase (38-126) U/L Total Protein (6.3-8.2) g/dL Albumin (3.5-5.0) g/dL Influenza Type A RNA (Not Detectd) Influenza Type B (PCR) (Not Detectd) Disposition Clinical Impression: Sinusitis Disposition: HOME SELF-CARE Condition: Good Instructions (If sedation given, give patient instructions): Sinusitis (ED) Prescriptions: Amoxicillin 875 mg PO Q12HR #14 tablet Is patient prescribed a controlled substance at d/c from ED?: No Referrals: Chaz Lacy DO [Primary Care Provider] - 1-2 days
[2019-10-25 05:37] LABS: Basophils % (A) 0 %; Eosinophils # (A) 0.1 k/uL (0-0.7); Eosinophils % (A) 1 %; HCT 43.5 % (39.0-53.0); HGB 14.4 gm/dL (13.0-17.5); Lymphocytes # (A) 0.4 k/uL (1.0-4.8); Lymphocytes % (A) 6 %; MCH 28.2 pg (25.0-35.0); MCV 85.5 fL (80.0-100.0); Mean Platelet Volume 7.7; Monocytes # (A) 0.4 k/uL (0-1.0); Monocytes % (A) 5 %; Neutrophils % (A) 86 %; Platelet Count 177 k/uL (150-450); RBC 5.09 m/uL (4.30-5.90); RDW 13.5 % (11.5-15.5)
[2019-10-25 05:41] LABS: ALT 38 U/L (4-49); AST 40 U/L (17-59); African American GFR (CKD) >90 (>60 ml/min/1.73 sqM); Albumin 4.4 g/dL (3.5-5.0); Alkaline Phosphatase 72 U/L (38-126); Anion Gap 7 mmol/L; Blood Urea Nitrogen 12 mg/dL (9-20); Calcium 9.4 mg/dL (8.4-10.2); Carbon Dioxide 28 mmol/L (22-30); Chloride 101 mmol/L (98-107); Glucose 100 mg/dL (74-99); Non-African American GFR(CKD) >90 (>60 ml/min/1.73 sqM); Sodium 136 mmol/L (137-145); Total Bilirubin 0.1 mg/dL (0.2-1.3); Total Protein 7.1 g/dL (6.3-8.2)
[2019-10-25 05:59] LABS: INR 0.9 (<1.2); Prothrombin Time 9.7 sec (9.0-12.0)
[2019-10-25 06:04] LABS: Partial Thromboplastin Time 21.7 sec (22.0-30.0)
--- NOTE | 2019-10-25 06:47 | XR ---
INDICATION: Fever COMPARISON: CXR 06/28/18 FINDINGS: PA and lateral views of the chest are obtained. The cardiomediastinal silhouette and pulmonary vascularity are within normal limits. Lungs are clear. No pleural the effusion or pneumothorax. Bony elements are within normal limits. IMPRESSION: No acute cardiopulmonary disease.
[2019-10-25 07:09] VITALS: BP 149/66; TEMP 98
[2019-10-25 08:02] LABS: Appearance,Urine Clear (Clear); Bilirubin,Urine Negative (Negative); Blood,Urine Negative (Negative); Color,Urine Light Yellow; Glucose,Urine (UA) Negative (Negative); Ketones,Urine Negative (Negative); Leukocyte Esterase,Urine Negative (Negative); Nitrite,Urine Negative (Negative); Protein,Urine Negative (Negative); Specific Gravity,Urine 1.017 (1.001-1.035); Urobilinogen,Urine <2.0 mg/dL (<2.0)
[2019-10-25 08:44] VITALS: PULSE 88; RESP 18
== END 2019-10-25 08:40 | disposition home or self-care (01) ==
LOC: EC 04:17
DX: J32.9 Chronic sinusitis, unspecified (principal); B19.20 Unspecified viral hepatitis C without hepatic coma; F17.200 Nicotine dependence, unspecified, uncomplicated; Z79.899 Other long term (current) drug therapy; Z90.89 Acquired absence of other organs; Z98.890 Other specified postprocedural states; Z53.8 Procedure and treatment not carried out for other reasons
CPT/HCPCS: 99284; 96365; 36415; 80053; 83605; 85025; 85610; 85730; 81003; 87040; 87502; 71046; J0696

== ENCOUNTER 2020-01-13 23:18 | Emergency (ER) | payer BC ==
[2020-01-13 23:26] VITALS: BP 121/75; PULSE 78; RESP 18; TEMP 98.1
--- NOTE | 2020-01-13 23:59 | XR ---
EXAMINATION TYPE: XR ribs RT w pa chest xray DATE OF EXAM: 01/13/2020 COMPARISON: 10/25/2019 HISTORY: Rib pain TECHNIQUE: 5 views FINDINGS: I see no fracture nor dislocation. There is no pleural effusion or pneumothorax. The right ribs appear intact. Shoulder joint is intact. Heart and mediastinum are normal. The lungs are clear o f infiltrate. IMPRESSION: Normal chest. Normal right ribs. No change.
--- NOTE | 2020-01-14 00:18 | ED ---
Chest Pain HPI - General Chief Complaint: Chest Pain Stated Complaint: Possible cracked rib Time Seen by Provider: 01/13/20 23:25 Source: patient, RN notes reviewed, old records reviewed Mode of arrival: ambulatory Limitations: no limitations - History of Present Illness Complaint: chest pain -: days(s) Onset: awoke with symptoms Pain Location: right chest Pain Radiation: abdomen Severity scale (1-10): 7 Quality: aching Consistency: constant Improves With: nothing Worsens With: nothing Context: trauma/injury (work) Anginal Symptoms: nausea Treatments Prior to Arrival: none - Related Data Home Medications Medication Instructions Recorded Confirmed Sofosbuvir/Velpatasvir [Epclusa 1 each PO DAILY 05/02/18 06/28/18 400 mg-100 mg Tablet] Previous Rx's Medication Instructions Recorded Amoxicillin 875 mg PO Q12HR #14 tablet 10/25/19 Allergies Allergy/AdvReac Type Severity Reaction Status Date / Time No Known Allergies Allergy Verified 01/13/20 23:25 Review of Systems ROS Statement: Those systems with pertinent positive or pertinent negative responses have been documented in the HPI. ROS Other: All systems not noted in ROS Statement are negative. Past Medical History Past Medical History: Asthma, Pneumonia Additional Past Medical History / Comment(s): hep c, previous drug user History of Any Multi-Drug Resistant Organisms: None Reported Past Surgical History: Adenoidectomy, Appendectomy, Ear Surgery, Tonsillectomy Additional Past Surgical History / Comment(s): uvula removed, septoplasty, right rotator cuff, Left rotator cuff Past Anesthesia/Blood Transfusion Reactions: No Reported Reaction Past Psychological History: Anxiety Smoking Status: Current every day smoker Past Alcohol Use History: Occasional Past Drug Use History: Marijuana - Past Family History Mother Family Medical History: Cancer, Hyperlipidemia, Hypertension Additional Family Medical History / Comment(s): Ovarian CA, non-Hodgkins lymp Father Family Medical History: Cancer Additional Family Medical History / Comment(s): Skin CA General Exam Limitations: no limitations General appearance: alert, in no apparent distress Head exam: Present: atraumatic, normocephalic, normal inspection Eye exam: Present: normal appearance, PERRL, EOMI. Absent: scleral icterus, conjunctival injection, periorbital swelling ENT exam: Present: normal exam, mucous membranes moist Neck exam: Present: normal inspection. Absent: tenderness, meningismus, lymphadenopathy Respiratory exam: Present: normal lung sounds bilaterally. Absent: respiratory distress, wheezes, rales, rhonchi, stridor Cardiovascular Exam: Present: regular rate, normal rhythm, normal heart sounds. Absent: systolic murmur, diastolic murmur, rubs, gallop, clicks GI/Abdominal exam: Present: soft, normal bowel sounds. Absent: distended, tenderness, guarding, rebound, rigid Extremities exam: Present: normal inspection, full ROM, normal capillary refill. Absent: tenderness, pedal edema, joint swelling, calf tenderness Back exam: Present: normal inspection Neurological exam: Present: alert, oriented X3, CN II-XII intact Psychiatric exam: Present: normal affect, normal mood Skin exam: Present: warm, dry, intact, normal color. Absent: rash Course Vital Signs 01/13/20 23:19 Temperature 98.1 F Pulse Rate 78 Respiratory 18 Rate Blood Pressure 121/75 O2 Sat by Pulse 98 Oximetry Disposition Clinical Impression: Atypical chest pain, Chest pain, Contusion of rib on right side Disposition: HOME SELF-CARE Condition: Good Instructions (If sedation given, give patient instructions): Costochondritis (ED), Rib Contusion (ED) Is patient prescribed a controlled substance at d/c from ED?: No Referrals: Chaz Lacy DO [Primary Care Provider] - 1-2 days
[2020-01-14] MEDS ORDERED: KETOROLAC 60 MG/2 ML VIAL IM STA (00:30)
[2020-01-14] MEDS ORDERED: Acetaminophen-Codeine 300-30mg TAB PO STA (00:30)
[2020-01-14] MEDS ORDERED: ACET/COD 300 MG/30 MG STARTER PACK 6 TAB BTL PO STA (00:30)
== END 2020-01-14 01:03 | disposition home or self-care (01) ==
LOC: EC 23:18
DX: S20.211A Contusion of right front wall of thorax, initial encounter (principal); F17.200 Nicotine dependence, unspecified, uncomplicated; Z79.899 Other long term (current) drug therapy; X58.XXXA Exposure to other specified factors, initial encounter; Y92.69 Other specified industrial and construction area as the place of occurrence of the external cause; Y99.0 Civilian activity done for income or pay
CPT/HCPCS: 71101; 99284; 96372; J1885

== ENCOUNTER 2020-02-02 19:33 | Emergency (ER) | payer BC ==
[2020-02-02 19:39] VITALS: BP 129/78; PULSE 82; RESP 18; TEMP 98.9
[2020-02-02] MEDS ORDERED: KETOROLAC 60 MG/2 ML VIAL IM STA (20:05)
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
== END 2020-02-02 21:02 | disposition home or self-care (01) ==
LOC: EC 19:33
DX: S20.219A Contusion of unspecified front wall of thorax, initial encounter (principal); S16.1XXA Strain of muscle, fascia and tendon at neck level, initial encounter; Z79.899 Other long term (current) drug therapy; Z87.891 Personal history of nicotine dependence; V43.52XA Car driver injured in collision with other type car in traffic accident, initial encounter; Y92.410 Unspecified street and highway as the place of occurrence of the external cause
CPT/HCPCS: 99283; 96372; J1885

== ENCOUNTER 2020-06-11 09:55 | Emergency (ER) | payer BC ==
[2020-06-11 10:06] VITALS: TEMP 98.5
[2020-06-11] MEDS ORDERED: IPRATROPIUM-ALBUTEROL 3 ML NEB INHALATION STA (10:11)
--- NOTE | 2020-06-11 10:14 | ED ---
SOB HPI - General Chief Complaint: Shortness of Breath Stated Complaint: SOB, fever, nausea Time Seen by Provider: 06/11/20 10:07 Source: patient, RN notes reviewed Mode of arrival: ambulatory Limitations: no limitations - History of Present Illness Initial Comments: 25-year-old male presents emergency Department chief complaint of shortness of breath. Patient states she said fever or chills congestion. Patient states that he felt some symptoms yesterday states that worsened today. Patient states that he was a former smoker he states he quit one year ago. Patient states she's had no known sick contacts. Patient states she felt that he had a fever high as was 99 at home he's had chills, sweats. Patient denies any chest pain. Patient denies any current vomiting diarrhea constipation no leg pain no leg swelling. No recent long distance traveling no history of PE or DVT. - Related Data Home Medications Medication Instructions Recorded Confirmed ARIPiprazole [Abilify] 5 mg PO DAILY 06/11/20 06/11/20 Dextroamphetamine/Amphetamine 20 mg PO BID PRN 06/11/20 06/11/20 [Adderall] Sertraline [Zoloft] 50 mg PO DAILY 06/11/20 06/11/20 valACYclovir HCL [Valtrex] 1,000 mg PO DAILY PRN 06/11/20 06/11/20 Previous Rx's Medication Instructions Recorded Azithromycin [Zithromax Z-pack (6 0 mg PO DIRECTED #1 pack 06/11/20 tabs)] predniSONE 50 mg PO DAILY #5 tab 06/11/20 Allergies Allergy/AdvReac Type Severity Reaction Status Date / Time No Known Allergies Allergy Verified 06/11/20 10:20 Review of Systems ROS Statement: Those systems with pertinent positive or pertinent negative responses have been documented in the HPI. ROS Other: All systems not noted in ROS Statement are negative. Past Medical History Past Medical History: Asthma, Pneumonia Additional Past Medical History / Comment(s): hep c, previous drug user History of Any Multi-Drug Resistant Organisms: None Reported Past Surgical History: Adenoidectomy, Appendectomy, Ear Surgery, Tonsillectomy Additional Past Surgical History / Comment(s): uvula removed, septoplasty, right rotator cuff, Left rotator cuff Past Anesthesia/Blood Transfusion Reactions: No Reported Reaction Past Psychological History: Anxiety Smoking Status: Never smoker Past Alcohol Use History: Occasional Past Drug Use History: None Reported - Past Family History Mother Family Medical History: Cancer, Hyperlipidemia, Hypertension Additional Family Medical History / Comment(s): Ovarian CA, non-Hodgkins lymp Father Family Medical History: Cancer Additional Family Medical History / Comment(s): Skin CA General Exam - General Exam Comments Initial Comments: Vitals are reviewed patients and no signs of distress. Limitations: no limitations General appearance: alert, in no apparent distress Head exam: Present: atraumatic, normocephalic, normal inspection Eye exam: Present: normal appearance, PERRL, EOMI. Absent: scleral icterus, conjunctival injection, periorbital swelling ENT exam: Present: normal exam, normal oropharynx, mucous membranes moist, TM's normal bilaterally Neck exam: Present: normal inspection, full ROM. Absent: tenderness, meningismus, lymphadenopathy Respiratory exam: Present: wheezes (Minimal). Absent: normal lung sounds bilaterally, respiratory distress, rales, rhonchi, stridor Cardiovascular Exam: Present: regular rate, normal rhythm, normal heart sounds. Absent: systolic murmur, diastolic murmur, rubs, gallop, clicks GI/Abdominal exam: Present: soft, normal bowel sounds. Absent: distended, tenderness, guarding, rebound, rigid Extremities exam: Absent: pedal edema, calf tenderness Course Vital Signs 06/11/20 06/11/20 06/11/20 10:04 10:18 10:46 Temperature 98.5 F Pulse Rate 62 60 Respiratory 18 16 Rate Blood Pressure 121/77 O2 Sat by Pulse 99 Oximetry 06/11/20 10:56 Temperature Pulse Rate 60 Respiratory Rate Blood Pressure O2 Sat by Pulse Oximetry Medical Decision Making - Medical Decision Making 25-year-old male presented for shortness breath and cough. Patient standing coronavirus testing. X-rays unremarkable. Patient we discharged with directions steroids for acute bronchitis return parameters discussed. Disposition Clinical Impression: Acute bronchitis Disposition: HOME SELF-CARE Condition: Stable Instructions (If sedation given, give patient instructions): Acute Bronchitis (ED) Additional Instructions: Please return to the Emergency Department if symptoms worsen or any other concerns. Prescriptions: predniSONE 50 mg PO DAILY #5 tab Azithromycin [Zithromax Z-pack (6 tabs)] 0 mg PO DIRECTED #1 pack Is patient prescribed a controlled substance at d/c from ED?: No Referrals: Chaz Lacy DO [Primary Care Provider] - 1-2 days Time of Disposition: 11:37
--- NOTE | 2020-06-11 11:29 | XR ---
EXAMINATION TYPE: XR chest 2V DATE OF EXAM: 06/11/2020 COMPARISON: 01/13/2020 HISTORY: 25-year-old male shortness of breath and cough TECHNIQUE: PA and lateral views FINDINGS: The cardiomediastinal silhouette, aorta, and pulmonary vasculature are within normal limits. Lungs an d pleural spaces are clear. IMPRESSION: No acute cardiopulmonary process.
[2020-06-11 11:52] VITALS: BP 125/64; PULSE 63; RESP 17
== END 2020-06-11 11:52 | disposition home or self-care (01) ==
LOC: EC 09:55
DX: J20.9 Acute bronchitis, unspecified (principal); Z79.899 Other long term (current) drug therapy; Z87.891 Personal history of nicotine dependence; Z20.828 Contact with and (suspected) exposure to other viral communicable diseases
CPT/HCPCS: 94640; 71046; 99285; U0003

== ENCOUNTER → 2020-06-15 | Outpatient (CLI) | payer BC ==
[2020-06-15 08:18] LABS: Basophils % (A) 1 %; Eosinophils % (A) 1 %; HCT 46.4 % (39.0-53.0); HGB 14.9 gm/dL (13.0-17.5); Lymphocytes # (A) 1.5 k/uL (1.0-4.8); Lymphocytes % (A) 26 %; MCHC 32.1 g/dL (31.0-37.0); MCV 90.2 fL (80.0-100.0); Mean Platelet Volume 7.3; Monocytes # (A) 0.4 k/uL (0-1.0); Monocytes % (A) 6 %; Neutrophils # (A) 3.7 k/uL (1.3-7.7); Neutrophils % (A) 66 %; Platelet Count 193 k/uL (150-450); RBC 5.15 m/uL (4.30-5.90); RDW 13.6 % (11.5-15.5); WBC 5.6 k/uL (3.8-10.6)
[2020-06-15 11:05] LABS: African American GFR (CKD) 137.1 (60.0-200.0); Albumin 4.6 g/dL (3.80-4.90); Albumin/Globulin Ratio 2.3 (1.60-3.17); Anion Gap 6.3 mmol/L (4.00-12.00); BUN/Creat Ratio 15.56 Ratio (12.00-20.00); Calcium 9.6 mg/dL (8.7-10.3); Carbon Dioxide 26.7 mmol/L (21.6-31.8); Non-African American GFR(CKD) 118.3 (60.0-200.0); Total Bilirubin 0.4 mg/dL (0.3-1.2); Total Protein 6.6 g/dL (6.2-8.2)
[2020-06-15 11:29] LABS: Alpha Fetoprotein, Tumor Mkr <2.5 ng/mL (0.0-7.9)
[2020-06-15 13:27] LABS: HIV 2 AB Non-Reactive (Non-Reactive); HIV AB P24 Non-Reactive (Non-Reactive); HIV P24 AG Non-Reactive (Non-Reactive)
[2020-06-15 17:22] LABS: Erythrocyte Sedimentation Rate 1 mm/Hr (0-15)
== END | disposition home or self-care (01) ==
LOC: LABWHC1 07:23
PROVIDERS: ATTEND Family Medicine
DX: B18.2 Chronic viral hepatitis C (principal); R61 Generalized hyperhidrosis; R53.83 Other fatigue
CPT/HCPCS: 36415; 80053; 82105; 82607; 82652; 84403; 84443; 85025; 85652; 86480; 87390; 87522

== ENCOUNTER 2020-10-19 19:36 | Emergency (ER) | payer BC, OTHER ==
[2020-10-19] MEDS ORDERED: ACETAMINOPHEN TAB 500 MG TAB PO STA (19:55)
[2020-10-19] MEDS ORDERED: SODIUM CHLORIDE 0.9% 1,000 ML IV STA (19:55)
[2020-10-19] MEDS ORDERED: MORPHINE SULFATE 4 MG/ML SYRINGE IVP STA (20:01)
--- NOTE | 2020-10-19 20:07 | ED ---
Fever HPI - General Chief Complaint: Fever Stated Complaint: possible infection Time Seen by Provider: 10/19/20 19:55 Source: patient Mode of arrival: ambulatory Limitations: no limitations - History of Present Illness Initial Comments: 25-year-old male presents to the emergency room with a chief complaint of a fever. Patient reports yesterday he had radiofrequency ablation of lumbar 3,4,5. procedure was performed by Dr. Ford and he had developed some dysuria afterwards but denies increased urgency or frequency. he also reports the pain has significantly increased after the procedure. States the pain is in the mid vertebral left paraspinal region that is radiating along the posterior aspect of left lower extremity to the foot. States the pain is "10 times worse compared to prior the procedure". he denies saddle anesthesia, urinary retention with overflow incontinence or bowel incontinence. Denies any headaches or neck stiffness. States that he took a tramadol earlier today it did not help the pain. He denies any chest pain or shortness of breath. denies abdominal pain chest pain or shortness of breath. - Related Data Home Medications Medication Instructions Recorded Confirmed ARIPiprazole [Abilify] 5 mg PO DAILY 06/11/20 06/11/20 Dextroamphetamine/Amphetamine 20 mg PO BID PRN 06/11/20 06/11/20 [Adderall] Sertraline [Zoloft] 50 mg PO DAILY 06/11/20 06/11/20 valACYclovir HCL [Valtrex] 1,000 mg PO DAILY PRN 06/11/20 06/11/20 Previous Rx's Medication Instructions Recorded Azithromycin [Zithromax Z-pack (6 0 mg PO DIRECTED #1 pack 06/11/20 tabs)] predniSONE 50 mg PO DAILY #5 tab 06/11/20 Allergies Allergy/AdvReac Type Severity Reaction Status Date / Time No Known Allergies Allergy Verified 10/19/20 19:53 Review of Systems ROS Statement: Those systems with pertinent positive or pertinent negative responses have been documented in the HPI. ROS Other: All systems not noted in ROS Statement are negative. Past Medical History Past Medical History: Asthma, Pneumonia Additional Past Medical History / Comment(s): hep c, previous drug user History of Any Multi-Drug Resistant Organisms: None Reported Past Surgical History: Adenoidectomy, Appendectomy, Ear Surgery, Tonsillectomy Additional Past Surgical History / Comment(s): uvula removed, septoplasty, right rotator cuff, Left rotator cuff Past Anesthesia/Blood Transfusion Reactions: No Reported Reaction Past Psychological History: Anxiety Smoking Status: Never smoker Past Alcohol Use History: Occasional Past Drug Use History: None Reported - Past Family History Mother Family Medical History: Cancer, Hyperlipidemia, Hypertension Additional Family Medical History / Comment(s): Ovarian CA, non-Hodgkins lymp Father Family Medical History: Cancer Additional Family Medical History / Comment(s): Skin CA General Exam Limitations: no limitations General appearance: alert, in no apparent distress, obese Head exam: Present: atraumatic, normocephalic, normal inspection Eye exam: Present: normal appearance, PERRL, EOMI Pupils: Present: normal accommodation ENT exam: Present: normal exam, normal oropharynx, mucous membranes moist, TM's normal bilaterally, normal external ear exam Neck exam: Present: normal inspection, full ROM. Absent: tenderness Respiratory exam: Present: normal lung sounds bilaterally. Absent: respiratory distress Cardiovascular Exam: Present: regular rate, normal rhythm, normal heart sounds GI/Abdominal exam: Present: soft. Absent: distended, tenderness, guarding, rebound Extremities exam: Present: normal inspection, full ROM, normal capillary refill, other (+2 dorsalis pedis and posterior tibialis bilaterally.). Absent: tenderness, pedal edema, joint swelling, calf tenderness Back exam: Present: normal inspection, full ROM, tenderness, paraspinal tenderness, vertebral tenderness, other (positive leg raise test in the left extremity.). Absent: CVA tenderness (R), CVA tenderness (L) Neurological exam: Present: alert, oriented X3 Psychiatric exam: Present: normal affect, normal mood Skin exam: Present: warm, dry, intact, normal color Course Vital Signs 10/19/20 10/19/20 19:51 21:22 Temperature 100.7 F H 99.3 F Pulse Rate 112 H 86 Respiratory 20 18 Rate Blood Pressure 111/70 126/77 O2 Sat by Pulse 97 96 Oximetry Medical Decision Making - Medical Decision Making 25-year-old male resenting to emergency Department with a chief complaint of fever. On physical examination, he has localized tenderness to the left para spinal and mid vertebral region of the spine that is radiating down to the left foot. There is no swelling, erythema or ecchymosis in the lower back region. low suspicion for cauda equina at this time. Chest x-ray is unremarkable. CBC and UA unremarkable. CMP reveals mild transaminitis. Patient was given IV fluids, antiemetics and morphine. Lactic acid within normal limits.blood cultures pending. Patient was also given antipyretics in emergency department. On reevaluation, vital signs have improved. His pain is also improved. CT of the lumbar spine shows disc herniation of L4-L5. patient is otherwise well- appearing.patient will be discharged with Tylenol 3 starter pack. He was adv ised to follow-up with his orthopedic physician. Strict return parameters were thoroughly discussed the patient was understanding and agreeable. Case discussed with Dr. Nguyen. - Lab Data Result diagrams: 10/19/20 20:45 10/19/20 20:45 Lab Results 10/19/20 10/19/20 10/19/20 Range/Units 20:45 20:45 20:45 WBC 9.5 (3.8-10.6) k/uL RBC 5.31 (4.30-5.90) m/uL Hgb 14.8 (13.0-17.5) gm/dL Hct 45.0 (39.0-53.0) % MCV 84.8 (80.0-100.0) fL MCH 27.8 (25.0-35.0) pg MCHC 32.8 (31.0-37.0) g/dL RDW 13.9 (11.5-15.5) % Plt Count 171 (150-450) k/uL MPV 7.4 Neutrophils % 68 % Lymphocytes % 19 % Monocytes % 10 % Eosinophils % 1 % Basophils % 0 % Neutrophils # 6.5 (1.3-7.7) k/uL Lymphocytes # 1.8 (1.0-4.8) k/uL Monocytes # 0.9 (0-1.0) k/uL Eosinophils # 0.1 (0-0.7) k/uL Basophils # 0.0 (0-0.2) k/uL Sodium 136 L (137-145) mmol/L Potassium 4.1 (3.5-5.1) mmol/L Chloride 98 (98-107) mmol/L Carbon Dioxide 27 (22-30) mmol/L Anion Gap 11 mmol/L BUN 18 (9-20) mg/dL Creatinine 0.97 (0.66-1.25) mg/dL Est GFR (CKD-EPI)AfAm >90 (>60 ml/min/1.73 sqM) Est GFR (CKD-EPI)NonAf >90 (>60 ml/min/1.73 sqM) Glucose 103 H (74-99) mg/dL Plasma Lactic Acid Santos 0.9 (0.7-2.0) mmol/L Calcium 9.6 (8.4-10.2) mg/dL Total Bilirubin 0.4 (0.2-1.3) mg/dL AST 74 H (17-59) U/L ALT 63 H (4-49) U/L Alkaline Phosphatase 72 (38-126) U/L Total Protein 7.6 (6.3-8.2) g/dL Albumin 4.7 (3.5-5.0) g/dL Urine Color Urine Appearance (Clear) Urine pH (5.0-8.0) Ur Specific [place]olia (1.001-1.035) Urine Protein (Negative) Urine Glucose (UA) (Negative) Urine Ketones (Negative) Urine Blood (Negative) Urine Nitrite (Negative) Urine Bilirubin (Negative) Urine Urobilinogen (<2.0) mg/dL Ur Leukocyte Esterase (Negative) 10/19/20 Range/Units 21:20 WBC (3.8-10.6) k/uL RBC (4.30-5.90) m/uL Hgb (13.0-17.5) gm/dL Hct (39.0-53.0) % MCV (80.0-100.0) fL MCH (25.0-35.0) pg MCHC (31.0-37.0) g/dL RDW (11.5-15.5) % Plt Count (150-450) k/uL MPV Neutrophils % % Lymphocytes % % Monocytes % % Eosinophils % % Basophils % % Neutrophils # (1.3-7.7) k/uL Lymphocytes # (1.0-4.8) k/uL Monocytes # (0-1.0) k/uL Eosinophils # (0-0.7) k/uL Basophils # (0-0.2) k/uL Sodium (137-145) mmol/L Potassium (3.5-5.1) mmol/L Chloride (98-107) mmol/L Carbon Dioxide (22-30) mmol/L Anion Gap mmol/L BUN (9-20) mg/dL Creatinine (0.66-1.25) mg/dL Est GFR (CKD-EPI)AfAm (>60 ml/min/1.73 sqM) Est GFR (CKD-EPI)NonAf (>60 ml/min/1.73 sqM) Glucose (74-99) mg/dL Plasma Lactic Acid Santos (0.7-2.0) mmol/L Calcium (8.4-10.2) mg/dL Total Bilirubin (0.2-1.3) mg/dL AST (17-59) U/L ALT (4-49) U/L Alkaline Phosphatase (38-126) U/L Total Protein (6.3-8.2) g/dL Albumin (3.5-5.0) g/dL Urine Color Light Yellow Urine Appearance Clear (Clear) Urine pH 6.0 (5.0-8.0) Ur Specific [place] 1.011 (1.001-1.035) Urine Protein Negative (Negative) Urine Glucose (UA) Negative (Negative) Urine Ketones Negative (Negative) Urine Blood Negative (Negative) Urine Nitrite Negative (Negative) Urine Bilirubin Negative (Negative) Urine Urobilinogen <2.0 (<2.0) mg/dL Ur Leukocyte Esterase Negative (Negative) Disposition Clinical Impression: Postoperative fever, Back pain Disposition: HOME SELF-CARE Condition: Stable Instructions (If sedation given, give patient instructions): Back Pain (ED) Additional Instructions: Follow-up with orthopedic doctor. Take prescribed medication as directed. Return to emergency department if symptoms worsen. Is patient prescribed a controlled substance at d/c from ED?: No Referrals: Chaz Lacy DO [Primary Care Provider] - 1-2 days Time of Disposition: 22:03
[2020-10-19 20:49] LABS: Basophils % (A) 0 %; Eosinophils # (A) 0.1 k/uL (0-0.7); Eosinophils % (A) 1 %; HGB 14.8 gm/dL (13.0-17.5); Lymphocytes # (A) 1.8 k/uL (1.0-4.8); Lymphocytes % (A) 19 %; MCH 27.8 pg (25.0-35.0); MCHC 32.8 g/dL (31.0-37.0); MCV 84.8 fL (80.0-100.0); Mean Platelet Volume 7.4; Monocytes # (A) 0.9 k/uL (0-1.0); Monocytes % (A) 10 %; Neutrophils # (A) 6.5 k/uL (1.3-7.7); Neutrophils % (A) 68 %; Platelet Count 171 k/uL (150-450); RBC 5.31 m/uL (4.30-5.90); RDW 13.9 % (11.5-15.5); WBC 9.5 k/uL (3.8-10.6)
--- NOTE | 2020-10-19 20:57 | XR ---
EXAMINATION TYPE: XR chest 2V DATE OF EXAM: 10/19/2020 COMPARISON: 06/11/2020 HISTORY: Postop fever TECHNIQUE: 2 views FINDINGS: Heart and mediastinum are normal. Lungs are clear. Diaphragm is normal. Bony thorax is inta ct. IMPRESSION: Normal chest. No change.
[2020-10-19 20:59] LABS: ALT 63 U/L (4-49); AST 74 U/L (17-59); African American GFR (CKD) >90 (>60 ml/min/1.73 sqM); Albumin 4.7 g/dL (3.5-5.0); Alkaline Phosphatase 72 U/L (38-126); Anion Gap 11 mmol/L; Blood Urea Nitrogen 18 mg/dL (9-20); Calcium 9.6 mg/dL (8.4-10.2); Carbon Dioxide 27 mmol/L (22-30); Chloride 98 mmol/L (98-107); Glucose 103 mg/dL (74-99); Non-African American GFR(CKD) >90 (>60 ml/min/1.73 sqM); Potassium 4.1 mmol/L (3.5-5.1); Sodium 136 mmol/L (137-145); Total Bilirubin 0.4 mg/dL (0.2-1.3); Total Protein 7.6 g/dL (6.3-8.2)
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
[2020-10-19 21:36] LABS: Appearance,Urine Clear (Clear); Bilirubin,Urine Negative (Negative); Blood,Urine Negative (Negative); Color,Urine Light Yellow; Glucose,Urine (UA) Negative (Negative); Ketones,Urine Negative (Negative); Leukocyte Esterase,Urine Negative (Negative); Nitrite,Urine Negative (Negative); Protein,Urine Negative (Negative); Specific Gravity,Urine 1.011 (1.001-1.035); Urobilinogen,Urine <2.0 mg/dL (<2.0)
[2020-10-19] MEDS ORDERED: ACET/COD 300 MG/30 MG STARTER PACK 6 TAB BTL PO STA (22:00)
[2020-10-19 22:34] VITALS: BP 118/68; PULSE 78; RESP 16; TEMP 98.9
== END 2020-10-19 22:30 | disposition home or self-care (01) ==
LOC: EC 19:36
DX: M51.26 Other intervertebral disc displacement, lumbar region (principal); R50.82 Postprocedural fever; M54.9 Dorsalgia, unspecified; R74.01 Elevation of levels of liver transaminase levels; F41.9 Anxiety disorder, unspecified; Z79.899 Other long term (current) drug therapy
CPT/HCPCS: 36415; 80053; 83605; 85025; 81003; 87040; 71046; 72131; 99284; 96374; 96361; J2270

== ENCOUNTER 2020-11-23 13:33 | Emergency (ER) | payer BC ==
[2020-11-23 13:38] VITALS: BP 133/85; PULSE 112; RESP 17; TEMP 98.2
[2020-11-23] MEDS ORDERED: LIDOCAINE 1% INJ 10MG/ML (20 ML MDV) SQ ONE (13:48)
--- NOTE | 2020-11-23 13:51 | ED ---
Wound/Laceration HPI - General Source: patient, RN notes reviewed Mode of arrival: ambulatory Limitations: no limitations <Alexsander Woo - Last Filed: 11/23/20 14:12> <Aydee Estrada - Last Filed: 11/26/20 15:17> - General Chief Complaint: Wound/Laceration Stated Complaint: Injury under Lt eye Time Seen by Provider: 11/23/20 13:45 - History of Present Illness Initial Comments: Patient is a 25-year-old male that presents to emergency department with a upper left cheek laceration. He noted that he was at work walking on stilts sanding a ceiling before pain when he tripped WOOD and fell and hit his face on a door jam. He noted that he is in no significant amount of pain and declined any need for pain medication is point. He noted that he is up-to-date on his tetanus vaccination and got his approximately 2 years ago. He denied any loss of consciousness headache nausea vomiting diarrhea constipation fever fatigue chills weakness numbness tingling. (Alexsander Woo) - Related Data Home Medications Medication Instructions Recorded Confirmed ARIPiprazole [Abilify] 5 mg PO DAILY 06/11/20 11/23/20 Dextroamphetamine/Amphetamine 20 mg PO BID PRN 06/11/20 11/23/20 [Adderall] Sertraline [Zoloft] 50 mg PO DAILY 06/11/20 11/23/20 valACYclovir HCL [Valtrex] 1,000 mg PO DAILY PRN 06/11/20 11/23/20 Allergies Allergy/AdvReac Type Severity Reaction Status Date / Time No Known Allergies Allergy Verified 10/19/20 19:53 Review of Systems ROS Other: All systems not noted in ROS Statement are negative. <Alexsander Woo - Last Filed: 11/23/20 14:12> ROS Other: All systems not noted in ROS Statement are negative. <Aydee Estrada - Last Filed: 11/26/20 15:17> ROS Statement: Those systems with pertinent positive or pertinent negative responses have been documented in the HPI. Past Medical History Past Medical History: Asthma, Pneumonia Additional Past Medical History / Comment(s): hep c, previous drug user History of Any Multi-Drug Resistant Organisms: None Reported Past Surgical History: Adenoidectomy, Appendectomy, Ear Surgery, Tonsillectomy Additional Past Surgical History / Comment(s): uvula removed, septoplasty, right rotator cuff, Left rotator cuff Past Anesthesia/Blood Transfusion Reactions: No Reported Reaction Past Psychological History: Anxiety Smoking Status: Current every day smoker, Never smoker Past Alcohol Use History: Occasional Past Drug Use History: None Reported - Past Family History Mother Family Medical History: Cancer, Hyperlipidemia, Hypertension Additional Family Medical History / Comment(s): Ovarian CA, non-Hodgkins lymp Father Family Medical History: Cancer Additional Family Medical History / Comment(s): Skin CA <Alexsander Woo - Last Filed: 11/23/20 14:12> General Exam Limitations: no limitations General appearance: alert, in no apparent distress Head exam: Present: atraumatic, normocephalic, normal inspection Eye exam: Present: normal appearance, PERRL, EOMI. Absent: scleral icterus, conjunctival injection, periorbital swelling ENT exam: Present: normal exam, mucous membranes moist Neck exam: Present: normal inspection. Absent: tenderness, meningismus, lymphadenopathy Respiratory exam: Present: normal lung sounds bilaterally. Absent: respiratory distress, wheezes, rales, rhonchi, stridor Cardiovascular Exam: Present: regular rate, normal rhythm, normal heart sounds. Absent: systolic murmur, diastolic murmur, rubs, gallop, clicks GI/Abdominal exam: Present: soft, normal bowel sounds. Absent: distended, tenderness, guarding, rebound, rigid Extremities exam: Present: normal inspection, full ROM, normal capillary refill. Absent: tenderness, pedal edema, joint swelling, calf tenderness Neurological exam: Present: alert, oriented X3, CN II-XII intact Psychiatric exam: Present: normal affect, normal mood Skin exam: Present: warm, dry, intact, normal color, abrasion (Small to 70 laceration of the superior aspect of the left cheek.). Absent: rash <Alexsander Woo - Last Filed: 11/23/20 14:12> Course Vital Signs 11/23/20 13:36 Temperature 98.2 F Pulse Rate 112 H Respiratory 17 Rate Blood Pressure 133/85 O2 Sat by Pulse 98 Oximetry Procedures - Laceration Laceration #1 Consent Obtained: verbal consent Indication: laceration Site: face (Superior aspect of left cheek) Description: linear Depth: simple, single layer Anesthetic Used: lidocaine 1% Anesthesia Technique: local infiltration Amount (mls): 2 Pre-repair: irrigated extensively Type of Sutures: nylon Size of Sutures: 5-0 Number of Sutures: 3 Technique: simple, interrupted Patient Tolerated Procedure: well, no complications <Alexsander Woo - Last Filed: 11/23/20 14:12> Medical Decision Making <Alexsander Woo - Last Filed: 11/23/20 14:12> <Aydee Estrada - Last Filed: 11/26/20 15:17> - Medical Decision Making 25-year-old male with a left cheek laceration from an accident at work. Patient declined need for x-ray. Lidocaine 1% ordered. Patient tolerated procedure well. Case discussed with Dr. Estrada, patient discharged home. (Alexsander Woo) I was available for consultation in the emergency department. The history and physical exam were done by the midlevel provider. I was consulted for this patients care. I reviewed the case with the midlevel provider and based on their presentation of the patient, I agree with the assessment, medical decision making and plan of care as documented. Chart was dictated using [employer] dictation software. Attempts were made to correct any dictation errors however some typographical errors may persist. Patient was seen during a national state of emergency due to the Covid-19 pandemic. (Aydee Estrada) Disposition Is patient prescribed a controlled substance at d/c from ED?: No Time of Disposition: 14:13 <Alexsander Woo - Last Filed: 11/23/20 14:12> <Aydee Estrada - Last Filed: 11/26/20 15:17> Clinical Impression: Laceration Disposition: HOME SELF-CARE Condition: Stable Instructions (If sedation given, give patient instructions): Care For Your Stitches (ED), Laceration (ED) Additional Instructions: Please return to the Emergency Department if symptoms worsen or any other concerns. Take [id number] pain medications for symptomatic control. May return to work, cover sutures with Band-Aid to prevent any dust or dirt from getting in. Come back in 5 days for suture removal. Referrals: Chaz Lacy, [Primary Care Provider] - 1-2 days
--- NOTE | 2020-11-27 01:46 | CDI ---
Dear Alexsander WELCHC> Please do addendum for Length of laceration repaired, required Thank you, Dulce Silvestre, [employer]ionics Mechanic If you have any questions, please contact City Controller at [phone] [facility]
--- NOTE | 2020-11-30 02:46 | ED ---
Medical Decision Making - Medical Decision Making Left cheek laceration was approximately 2.5 cm in length, linear, clean margins Disposition Clinical Impression: Laceration Disposition: HOME SELF-CARE Condition: Stable Instructions (If sedation given, give patient instructions): Care For Your Stitches (ED), Laceration (ED) Additional Instructions: Please return to the Emergency Department if symptoms worsen or any other concerns. Take [id number] pain medications for symptomatic control. May return to work, cover sutures with Band-Aid to prevent any dust or dirt from getting in. Come back in 5 days for suture removal. Is patient prescribed a controlled substance at d/c from ED?: No Referrals: Chaz Lacy DO [Primary Care Provider] - 1-2 days
== END 2020-11-23 14:20 | disposition home or self-care (01) ==
LOC: EC 13:33
DX: S01.412A Laceration without foreign body of left cheek and temporomandibular area, initial encounter (principal); F41.9 Anxiety disorder, unspecified; F17.200 Nicotine dependence, unspecified, uncomplicated; Z79.899 Other long term (current) drug therapy; W18.09XA Striking against other object with subsequent fall, initial encounter; Y93.01 Activity, walking, marching and hiking; Y92.69 Other specified industrial and construction area as the place of occurrence of the external cause; Y99.0 Civilian activity done for income or pay
CPT/HCPCS: 99282; 12011; J2001

== ENCOUNTER 2023-04-03 19:27 | Emergency (ER) | payer BC ==
[2023-04-03 19:37] VITALS: RESP 16; TEMP 98.9
[2023-04-03] MEDS ORDERED: HYDROcodone/APAP 5-325MG 1 EACH TAB PO STA (19:55)
--- NOTE | 2023-04-03 20:13 | ED ---
General Adult HPI - General Chief complaint: Extremity Injury, Lower Stated complaint: Rt ankle injury Time Seen by Provider: 04/03/23 19:38 Source: patient, RN notes reviewed, old records reviewed Mode of arrival: wheelchair Limitations: no limitations - History of Present Illness Initial comments: Patient's a 28-year-old male who presents with Department complaining of right ankle pain. Patient rolled his ankle prior to arrival. Was playing softball when he stepped on another players foot and inverted his ankle. This occurred approximately 30 minutes prior to arrival. Was unable to ambulate on it. Presents for further evaluation. Did not drive himself. Denies any sensory deficits. Pain with movement of the right ankle as well as in the right foot somewhat. Swelling over the right lateral malleolus. No other injuries. Did not hit his head. Did not lose consciousness. Is not on blood thinners. Presents for further evaluation. - Related Data Home Medications Medication Instructions Recorded Confirmed ARIPiprazole [Abilify] 5 mg PO DAILY 06/11/20 11/23/20 Dextroamphetamine/Amphetamine 20 mg PO BID PRN 06/11/20 11/23/20 [Adderall] Sertraline [Zoloft] 50 mg PO DAILY 06/11/20 11/23/20 valACYclovir HCL [Valtrex] 1,000 mg PO DAILY PRN 06/11/20 11/23/20 Allergies Allergy/AdvReac Type Severity Reaction Status Date / Time No Known Allergies Allergy Verified 10/19/20 19:53 Review of Systems ROS Statement: Those systems with pertinent positive or pertinent negative responses have been documented in the HPI. Review of Systems: CONST: Denies fever EYES: Denies blurry vision ENT: Denies nasal congestion C/V: Denies Chest pain RESP: Denies shortness of breath GI: Denies abdominal pain : Denies dysuria SKIN: Denies rash. MSK: Endorses right ankle pain NEURO: Denies headache ROS Other: All systems not noted in ROS Statement are negative. Past Medical History Past Medical History: Asthma Additional Past Medical History / Comment(s): hep c, previous drug user History of Any Multi-Drug Resistant Organisms: None Reported Past Surgical History: Adenoidectomy, Appendectomy, Ear Surgery, Tonsillectomy Additional Past Surgical History / Comment(s): uvula removed, septoplasty, right rotator cuff, Left rotator cuff Past Anesthesia/Blood Transfusion Reactions: No Reported Reaction Past Psychological History: Anxiety Smoking Status: Never smoker Past Alcohol Use History: Occasional Past Drug Use History: Marijuana - Past Family History Mother Family Medical History: Cancer, Hyperlipidemia, Hypertension Additional Family Medical History / Comment(s): Ovarian CA, non-Hodgkins lymp Father Family Medical History: Cancer Additional Family Medical History / Comment(s): Skin CA General Exam - General Exam Comments Initial Comments: General: Appears in mild to moderate distress secondary to pain HEAD: Normal with no signs of head trauma. EYES: EOMI. ENT: Hearing grossly intact. RESPIRATORY: No respiratory distress. C/V: Regular rate and rhythm. ABD: Abdomen is nondistended. EXT: Swelling over the right lateral malleolus. Neurovascularly intact in the right lower extremity. Tenderness to palpation in the right lateral malleolus as well as the proximal right dorsal foot. No obvious deformity other than the swelling. SKIN: No rashes or lesions observed on exposed skin. NEURO: Alert and oriented. Limitations: no limitations Course Vital Signs 04/03/23 04/03/23 19:34 21:59 Temperature 98.9 F Pulse Rate 80 56 L Respiratory 16 16 Rate Blood Pressure 116/63 112/65 O2 Sat by Pulse 99 97 Oximetry Medical Decision Making - Medical Decision Making Was pt. sent in by a medical professional or institution (RADHA Cole, BRICK MACHINE OPERATOR, urgent care, hospital, or usp...) When possible be specific @ -No Did you speak to anyone other than the patient for history (EMS, parent, family, police, friend...)? What history was obtained from this source @ -No Did you review nursing and triage notes (agree or disagree)? Why? @ -I reviewed and agree with nursing and triage notes Were old charts reviewed (outside hosp., previous admission, EMS record, old EKG, old radiological studies, urgent care reports/EKG's, usp records)? Report findings @ -No old charts were reviewed Differential Diagnosis (chest pain, altered mental status, abdominal pain women, abdominal pain men, vaginal bleeding, weakness, fever, dyspnea, syncope, heada awais, dizziness, GI bleed, back pain, seizure, CVA, palpatations, mental health, musculoskeletal)? @ -Differential Musculoskeletal Muscular strain, contusion, ligament sprain, fracture, arthritis, septic arthritis, bursitis, cellulitis, muscle spasm, nerve compression, DVT, arterial occlusion, herpes zoster, electrolyte abnormality, tumor.... This is not meant to be in all inclusive list EKG interpreted by me (3pts min.). @ -None done X-rays interpreted by me (1pt min.). @ -Patient's imaging negative for any obvious traumatic injury other than soft tissue swelling. No obvious fracture of the ankle or foot. CT interpreted by me (1pt min.). @ -None done U/S interpreted by me (1pt. min.). @ -None done What testing was considered but not performed or refused? (CT, X-rays, U/S, labs)? Why? @ -None What meds were considered but not given or refused? Why? @ -None Did you discuss the management of the patient with other professionals (professionals i.e. , PA, BRICK MACHINE OPERATOR, lab, RT, psych nurse, social insurance specialist, manager copy, teacher, booking officer, case management social worker)? Give summary @ -No Was smoking cessation discussed for >3mins.? @ -No Was critical care preformed (if so, how long)? @ -No Were there social determinants of health that impacted care today? How? (Homelessness, low income, unemployed, alcoholism, drug addiction, transportation, low edu. Level, literacy, decrease access to med. care, long term, rehab)? @ -No Was there de-escalation of care discussed even if they declined (Discuss DNR or withdrawal of care, Hospice)? DNR status @ -No What co-morbidities impacted this encounter? (DM, HTN, Smoking, COPD, CAD, Cancer, CVA, ARF, Chemo, Hep., AIDS, mental health diagnosis, sleep apnea, morbid obesity)? @ -None Was patient admitted / discharged? Hospital course, mention meds given and route, prescriptions, significant lab abnormalities, going to OR and other pertinent info. @ -Based on the patient's presentation and physical exam, I'm concerned for right ankle sprain versus possible bony traumatic injury. We will obtain x-rays of the right ankle and foot. Patient will be administered analgesic medications, Randolph tablet. Vital signs within acceptable limits. Patient was in agreement this plan. X-rays unremarkable. I updated the patient. He expressed understanding. He will be given a stirrup splint as well as crutches. Recommended ice, elevation, [id number] analgesic medications. He will be given a Tylenol 3 starter pack. He was in agreement this plan. Will follow up with his PCP. Strict return precautions discussed. Recommended repeat x-ray in 1-2 weeks if symptoms are not improving. I instructed the patient to follow up with their PCP in the next 1-3 days. I provided contact information for follow up with orthopedics. I explained that the patient should return to the emergency department if they experience any worsening symptoms. Strict return precautions were discussed with the patient. The patient expressed understanding of these instructions. I answered all questions that the patient had. The patient was discharged home in good condition with their prescriptions and follow up information. Undiagnosed new problem with uncertain prognosis? @ -No Drug Therapy requiring intensive monitoring for toxicity (Heparin, Nitro, Insulin, Cardizem)? @ -No Were any procedures done? @ -No Diagnosis/symptom? @ -Right ankle sprain Acute, or Chronic, or Acute on Chronic? @ -Acute Uncomplicated (without systemic symptoms) or Complicated (systemic symptoms)? @ -Uncomplicated Side effects of treatment? @ -none Exacerbation, Progression, or Severe Exacerbation] @ -no Poses a threat to life or bodily function? @ -no Disposition Clinical Impression: Right ankle sprain Disposition: HOME SELF-CARE Condition: Good Instructions (If sedation given, give patient instructions): Ankle Sprain (ED) Is patient prescribed a controlled substance at d/c from ED?: No Referrals: Chaz Lacy DO [Primary Care Provider] - 1-2 days Franck Herrera MD [Medical Doctor] - 1-2 days Time of Disposition: 21:28
--- NOTE | 2023-04-03 21:15 | XR ---
EXAMINATION TYPE: XR ankle complete RT DATE OF EXAM: 04/03/2023 COMPARISON: None HISTORY: Pain injury TECHNIQUE: 3 view right ankle FINDINGS: Soft tissue swelling is over the lateral malleolus and anterior ankle. Ankle mortise is int act. No displaced fractures are identified. Follow-up studies can be performed 7-10 days from acute trauma for continued pain. MRI can be perform ed if soft tissue evaluation of benefit. IMPRESSION: 1. Soft tissue swelling anterior and lateral ankle.
--- NOTE | 2023-04-03 21:22 | XR ---
EXAMINATION TYPE: XR foot complete RT DATE OF EXAM: 04/03/2023 COMPARISON: None HISTORY: Injury, pain TECHNIQUE: 3 view right foot FINDINGS: No acute fracture or dislocation is evident. Prominent soft tissue swelling is laterally. T here is some soft tissue swelling anterior ankle as well. Joint spaces are preserved. Follow-up exams the ankle are foot can be performed 7-10 days from acute trauma for continued pain. IMPRESSION: 1. No acute osseous abnormality right foot. 2. Soft tissue swelling anterior and lateral ankle
[2023-04-03] MEDS ORDERED: ACET/COD 300 MG/30 MG STARTER PACK 6 TAB BTL PO STA (21:40)
[2023-04-03 22:00] VITALS: BP 112/65; PULSE 56
== END 2023-04-03 22:00 | disposition home or self-care (01) ==
LOC: EC 19:27
DX: S93.401A Sprain of unspecified ligament of right ankle, initial encounter (principal); J45.909 Unspecified asthma, uncomplicated; F41.9 Anxiety disorder, unspecified; F12.90 Cannabis use, unspecified, uncomplicated; Z79.899 Other long term (current) drug therapy; X50.1XXA Overexertion from prolonged static or awkward postures, initial encounter; Y93.64 Activity, baseball
CPT/HCPCS: 29515; 99283